=== PATIENT | female | born 1935 | race Caucasian/White ===

== ENCOUNTER 2017-08-19 12:02 | Emergency (ER) | payer MEDICARE ==
[~2017-08-19] VITALS: Ht 142.2 cm; Wt 48.0 kg
[~2017-08-19 12:02] MED LIST: ALBUAER3 INH; AMOX500T PO; OMEP20TA PO; PROC10TA PO; REST30CA PO; SYMB160A INH; TRIA.1%T TOPICAL
[2017-08-19 12:13] VITALS: BP 220/102; PULSE 77; RESP 18; TEMP 97.9; O2SAT 93
[2017-08-19 12:16] VITALS: BP 220/102; PULSE 77; RESP 18; TEMP 97.9; O2SAT 93
[2017-08-19 12:26] VITALS: BP 177/87; PULSE 76; RESP 18; O2SAT 93
--- NOTE | 2017-08-19 12:34 | PD ---
HPI Chief Complaint: Abdominal Pain Time Seen by Provider: 12:20 Travel History International Travel<30 days: No Contact w/Intl Traveler<30days: No Traveled to known affect area: No History of Present Illness HPI This is an 81-year-old female with history of COPD who presents via EMS for evaluation of left lower quadrant abdominal pain. Symptoms started 3 days ago. She describes an intermittent left lower quadrant crampy sensation which is worse in the mornings. Today the pain became worse and this is what prompted evaluation. The pain does not radiate anywhere else. She denies any nausea, vomiting, diarrhea, constipation, fevers, chills, flank pain, dysuria. She has never had this type of pain before. No history of diverticulosis or diverticulitis. She reports a history of cholecystectomy, . She has no other complaints at this time. PFSH Past Medical History Anxiety: No Depression: No COPD: Yes GERD: Yes Insomnia: Yes Psychiatric: No Respiratory: Yes (COPD ) Past Surgical History Section: Yes (3) Cholecystectomy: Yes Social History Alcohol Use: No Tobacco Use: Yes (1/2 PPD) Substance Use: No Allergies-Medications (Allergen,Severity, Reaction): Coded Allergies: pregabalin (Unverified Allergy, Severe, swelling, 08/19/17) codeine (Unverified Allergy, Mild, STOMACH PAIN, 08/19/17) aspirin (Unverified Adverse Reaction, Intermediate, Stomach pain , 08/19/17 ) trazodone (Unverified Adverse Reaction, Intermediate, Not effective. Fatiguing, 08/19/17) Uncoded Allergies: LANACAINE (Allergy, Severe, 01/02/06) UPDATED. tape (Adverse Reaction, Intermediate, Skin reaction, 01/18/16) Reported Meds & Prescriptions Reported Meds & Active Scripts Active Omeprazole 20 Mg Tab 20 Mg PO DAILY Proair Hfa 8.5 GM Inh (Albuterol Sulfate) 90 Mcg/Act Aer 2 Puff INH Q4-6H PRN 108 mcg/actuation Symbicort Inh (Budesonide/Formoterol Fumarate) 160-4.5 Mcg/Act Aero 2 Puff INH Q12HR Review of Systems Except as stated in HPI: all other systems reviewed are Neg Physical Exam Narrative GENERAL: Well-developed well-nourished female in no acute distress SKIN: Warm and dry. HEAD: Atraumatic. Normocephalic. EYES: Pupils equal and round. No scleral icterus. No injection or drainage. ENT: No nasal bleeding or discharge. Mucous membranes pink and moist. NECK: Trachea midline. No JVD. CARDIOVASCULAR: Regular rate and rhythm. No murmur appreciated. RESPIRATORY: No accessory muscle use. Clear to auscultation. Breath sounds equal bilaterally. GASTROINTESTINAL: Abdomen soft, mild focal left lower quadrant tenderness without guarding. No CVA tenderness. MUSCULOSKELETAL: No obvious deformities. No clubbing. No cyanosis. No edema. NEUROLOGICAL: Awake and alert. No obvious cranial nerve deficits. Motor grossly within normal limits. Normal speech. PSYCHIATRIC: Appropriate mood and affect; insight and judgment normal. Data Data Last Documented VS Vital Signs Date Time Temp Pulse Resp B/P (MAP) Pulse Ox O2 Delivery O2 Flow Rate FiO2 08/19/17 14:22 76 18 190/97 (128) 94 Nasal Cannula 2.00 08/19/17 12:16 97.9 Orders Orders Complete Blood Count With Diff (08/19/17 12:29) Comprehensive Metabolic Panel (08/19/17 12:29) Lactic Acid (08/19/17 12:29) Prothrombin Time / Inr (Pt) (08/19/17 12:29) Act Partial Throm Time (Ptt) (08/19/17 12:29) Urinalysis - C+S If Indicated (08/19/17 12:29) Ct Abd/Pel W Iv Contrast(Rout) (08/19/17 12:29) Iv Access Insert/Monitor (08/19/17 12:29) Ecg Monitoring (08/19/17 12:29) Oximetry (08/19/17 12:29) Iohexol 350 Inj (Omnipaque 350 Inj) (08/19/17 15:21) Labs Laboratory Tests Test 08/19/17 12:35 08/19/17 13:26 White Blood Count 8.9 TH/MM3 Red Blood Count 5.04 MIL/MM3 Hemoglobin 15.4 GM/DL Hematocrit 45.0 % Mean Corpuscular Volume 89.3 FL Mean Corpuscular Hemoglobin 30.5 PG Mean Corpuscular Hemoglobin Concent 34.1 % Red Cell Distribution Width 13.5 % Platelet Count 244 TH/MM3 Mean Platelet Volume 8.4 FL Neutrophils (%) (Auto) 67.0 % Lymphocytes (%) (Auto) 18.1 % Monocytes (%) (Auto) 11.4 % Eosinophils (%) (Auto) 3.1 % Basophils (%) (Auto) 0.4 % Neutrophils # (Auto) 6.0 TH/MM3 Lymphocytes # (Auto) 1.6 TH/MM3 Monocytes # (Auto) 1.0 TH/MM3 Eosinophils # (Auto) 0.3 TH/MM3 Basophils # (Auto) 0.0 TH/MM3 CBC Comment DIFF FINAL Differential Comment Prothrombin Time 11.0 SEC Prothromb Time International Ratio 1.0 RATIO Activated Partial Thromboplast Time 29.3 SEC Blood Urea Nitrogen 14 MG/DL Creatinine 0.56 MG/DL Random Glucose 91 MG/DL Total Protein 7.0 GM/DL Albumin 3.6 GM/DL Calcium Level 8.6 MG/DL Alkaline Phosphatase 78 U/L Aspartate Amino Transf (AST/SGOT) 24 U/L Alanine Aminotransferase (ALT/SGPT) 16 U/L Total Bilirubin 0.5 MG/DL Sodium Level 135 MEQ/L Potassium Level 4.1 MEQ/L Chloride Level 103 MEQ/L Carbon Dioxide Level 25.3 MEQ/L Anion Gap 7 MEQ/L Estimat Glomerular Filtration Rate 104 ML/MIN Lactic Acid Level 0.9 mmol/L Urine Color LIGHT-YELLOW Urine Turbidity CLEAR Urine pH 7.0 Urine Specific [place] 1.008 Urine Protein NEG mg/dL Urine Glucose (UA) NEG mg/dL Urine Ketones NEG mg/dL Urine Occult Blood NEG Urine Nitrite NEG Urine Bilirubin NEG Urine Urobilinogen LESS THAN 2.0 MG/DL Urine Leukocyte Esterase NEG Urine RBC 1 /hpf Urine WBC 1 /hpf Microscopic Urinalysis Comment CULT NOT INDICATED MDM Medical Decision Making Medical Screen Exam Complete: Yes Emergency Medical Condition: Yes Medical Record Reviewed: Yes Differential Diagnosis Diverticulitis, colitis, aortic dissection, malignancy, cystitis, constipation, IBS, mesenteric ischemia Narrative Course The patient was placed on ECG monitor and pulse oximetry. Plan is for basic lab work, urinalysis, CT abdomen and pelvis. She is declining pain medication at this time. Blood pressure was initially 220/102 however upon recheck it has spontaneously improved to 177/87. Lab work is unremarkable. CT abdomen and pelvis reveals CONCLUSION: 1. No definite abnormality to explain the patient's left lower quadrant pain identified. 2. Incidental lobulation projecting off the fundus of the uterus measuring 3.5 x 2.9 cm probably representing a uterine fibroid. 3. Degenerative changes in the lumbar spine. The patient's pain resolved during her hospital evaluation. At this point time the plan is to have the patient follow up with her primary care physician. She is stable for discharge. Diagnosis Primary Impression: Abdominal pain Qualified Codes: R10.32 - Left lower quadrant pain Additional Impression: Uterine fibroid Qualified Codes: D25.9 - Leiomyoma of uterus, unspecified Additional Instructions: Follow-up with primary care physician. Return for any emergent medical conditions. Med/Other Pt SpecificInfo: No Change to Meds Disposition: 01 DISCHARGE HOME Condition: Stable Kota Robert Aug 19, 2017 12:34
[2017-08-19 12:41] VITALS: RESP 18; O2SAT 93
[2017-08-19 12:58] LABS: BASOPHIL % 0.4 % (0.0-2.0); EOSINOPHIL # 0.3 TH/MM3 (0-0.4); EOSINOPHIL % 3.1 % (0.0-4.0); HEMO FLAGS DIFF FINAL; LYMPH % 18.1 % (9.0-44.0); LYMPHOCYTE # 1.6 TH/MM3 (1.0-4.8); MEAN CELL VOLUME 89.3 FL (80.0-100.0); MEAN CORPUSCULAR HEMOGLOBIN 30.5 PG (27.0-34.0); MEAN CORPUSCULAR HGB CONC 34.1 % (32.0-36.0); MONO % 11.4 % (0.0-8.0); PLATELET COUNT 244 TH/MM3 (150-450); RED BLOOD COUNT 5.04 MIL/MM3 (4.00-5.30); RED CELL DISTRIBUTION WIDTH 13.5 % (11.6-17.2); WHITE BLOOD COUNT 8.9 TH/MM3 (4.0-11.0)
[2017-08-19 13:10] LABS: APTT (PATIENT) 29.3 SEC (24.3-30.1)
[2017-08-19 13:16] LABS: ALT (GPT) 16 U/L (10-53)
[2017-08-19 13:18] LABS: ALKALINE PHOSPHATASE 78 U/L (45-117); TOTAL BILIRUBIN ADULT 0.5 MG/DL (0.2-1.0)
[2017-08-19 13:57] LABS: ANION GAP 7 MEQ/L (5-15); AST (GOT) 24 U/L (15-37); BICARBONATE 25.3 MEQ/L (21.0-32.0); BLOOD UREA NITROGEN 14 MG/DL (7-18); CHLORIDE 103 MEQ/L (98-107); GLOMERULAR FILTRATION RATE 104 ML/MIN (>89); SODIUM (NA) 135 MEQ/L (136-145)
[2017-08-19 14:00] LABS: POTASSIUM 4.1 MEQ/L (3.5-5.1)
[2017-08-19 14:20] LABS: BLOOD, URINE NEG (NEG); GLUCOSE,URINE NEG (NEG); KETONE, URINE NEG (NEG); NITRITE,URINE NEG (NEG); URINE COLOR LIGHT-YELLOW (YELLW/STRAW)
[2017-08-19 14:22] VITALS: BP 190/97; PULSE 76; RESP 18; O2SAT 94
[2017-08-19 14:35] LABS: COMMENT (UR) CULT NOT INDICATED; CULTURE IF INDICATED CULT NOT INDICATED
[2017-08-19] MEDS ORDERED: IOHEXOL 350 MG/ML 10 ML VIAL (for RAD DIAG) IVCONTRAST ONE (15:21)
--- NOTE | 2017-08-19 15:31 | RADRPT ---
EXAM DATE/TIME: 08/19/2017 15:18 [facility] COMPARISON: No previous studies available for comparison. INDICATIONS : Left lower quadrant pain for 3 days IV CONTRAST: 77 cc Omnipaque 350 (iohexol) IV ORAL CONTRAST: No oral contrast ingested. RADIATION DOSE: 4.69 CTDIvol (mGy) MEDICAL HISTORY : Chronic obstructive pulmonary disease. SURGICAL HISTORY : Cholecystectomy. section. ENCOUNTER: Initial ACUITY: 3 days PAIN SCALE: 5/10 LOCATION: Left lower quadrant TECHNIQUE: Volumetric scanning of the abdomen and pelvis was performed. Using automated exposure control and ad justment of the mA and/or kV according to patient size, radiation dose was kept as low as reasonably achievable to obtain optimal diagnostic quality images. DICOM format image data is available electro nically for review and comparison. FINDINGS: The limited portion of lung bases visualized is clear. The heart is mildly enlarged. Imaging through the liver demonstrates mild prominence of the intrahepatic and extrahepatic biliary s ystem. The distal common duct measures 7 mm. The patient is post cholecystectomy and as such this may simply represent a reservoir effect. The spleen, pancreas, adrenal glands and kidneys are normal in appearance. There is diffuse atherosclerotic plaquing involving the abdominal aorta. The celiac and SMA are paten t. The abdominal aorta appears normal in caliber. There is no retroperitoneal adenopathy. The visualized loops of small and large bowel are unremarkable. There is no free air or free fluid id entified. There is no free fluid within the pelvis. There is no iliac or inguinal adenopathy present. The repro ductive organs are intact. There is a 3.5 x 2.9 cm lobulation projecting off the uterine fundus proba echo representing uterine fibroid. There are moderate degenerative changes throughout the lumbar spine. There is a mild rotatory scolios is. CONCLUSION: 1. No definite abnormality to explain the patient's left lower quadrant pain identified. 2. Incidental lobulation projecting off the fundus of the uterus measuring 3.5 x 2.9 cm probably repr esenting a uterine fibroid. 3. Degenerative changes in the lumbar spine. Agustin Sullivan MD on August 19, 2017 at 15:26 Board Certified Radiologist. This report was verified electronically.
== END 2017-08-19 16:45 | disposition home or self-care (01) ==
LOC: NEPE 12:02
DX: R10.32 Left lower quadrant pain (principal); D25.9 Leiomyoma of uterus, unspecified; J44.9 Chronic obstructive pulmonary disease, unspecified; Z72.0 Tobacco use
CPT/HCPCS: 74177; 80053; 81001; 83605; 85025; 85610; 85730; 99285; Q9967

== ENCOUNTER 2017-11-02 10:18 | Emergency (ER) | payer MEDICARE ==
[~2017-11-02] VITALS: Ht 142.2 cm; Wt 48.0 kg
[~2017-11-02 10:18] MED LIST changes: -AMOX500T PO; +CIPR-9 PO; -OMEP20TA PO; +OMEP20TA93 PO; -PROC10TA PO; -REST30CA PO; -TRIA.1%T TOPICAL
[2017-11-02 10:20] VITALS: BP 190/85; PULSE 118; RESP 18; TEMP 99.8; O2SAT 95
[2017-11-02 10:30] VITALS: O2SAT 94
--- NOTE | 2017-11-02 10:59 | PD ---
HPI Chief Complaint: Respiratory Distress Time Seen by Provider: 10:31 Travel History International Travel<30 days: No Contact w/Intl Traveler<30days: No Traveled to known affect area: No History of Present Illness HPI This is an 81-year-old female with history of COPD, presents here today with complaints of shortness of breath and diarrhea. The patient reports she's had diarrhea since last week. She reports that she went to her primary care physician for the diarrhea and shortness of breath and they started her on Cipro. She states she was on Cipro for and Saturday. She states she did not take it today because it was giving her an upset stomach. She denies any fevers but does state that she feels hot. She denies any chills. There was one episode of vomiting. She reports that she was up all night with diarrhea. There are no other complaints time my examination. PFSH Past Medical History Anxiety: No Depression: No COPD: Yes Diminished Hearing: No GERD: Yes Insomnia: Yes Psychiatric: No Respiratory: Yes Past Surgical History Section: Yes (3) Cholecystectomy: Yes Social History Alcohol Use: No Tobacco Use: Yes (1/2 PPD) Substance Use: No Allergies-Medications (Allergen,Severity, Reaction): Coded Allergies: pregabalin (Verified Allergy, Severe, swelling, 11/02/17) codeine (Verified Allergy, Mild, STOMACH PAIN, 11/02/17) aspirin (Verified Adverse Reaction, Intermediate, Stomach pain , 11/02/17) trazodone (Verified Adverse Reaction, Intermediate, Not effective. Fatiguing, 11/02/17) Uncoded Allergies: LANACAINE (Allergy, Severe, 01/02/06) UPDATED. tape (Adverse Reaction, Intermediate, Skin reaction, 01/18/16) Reported Meds & Prescriptions Reported Meds & Active Scripts Active Reglan (Metoclopramide HCl) 5 Mg Tab 5 Mg PO Q8HR Medrol Dosepak (Methylprednisolone) 4 Mg Dspk 4 Mg PO DIRECTED Per Pharmacist direction Amoxicillin 500 Mg Cap 500 Mg PO TID 10 Days Cipro (Ciprofloxacin HCl) 500 Mg Tab 500 Mg PO BID Proair Hfa 8.5 GM Inh (Albuterol Sulfate) 90 Mcg/Act Aer 2 Puff INH Q4-6H PRN 108 mcg/actuation Symbicort Inh (Budesonide/Formoterol Fumarate) 160-4.5 Mcg/Act Aero 2 Puff INH Q12HR Review of Systems Except as stated in HPI: all other systems reviewed are Neg General / Constitutional: Positive: Fever (subjective warm), No: Chills HENT: No: Headaches, Neck Pain Cardiovascular: No: Chest Pain or Discomfort, Palpitations Respiratory: Positive: Cough (white yellow phlegm), Shortness of Breath, Wheezing Gastrointestinal: Positive: Nausea, Vomiting (Imes one episode), Diarrhea ( several per day), No: Abdominal Pain (other than cramping, no), Hematemesis, Hematochezia Genitourinary: No: Frequency, Dysuria Musculoskeletal: No: Weakness, Pain Neurologic: No: Weakness, Dizziness, Headache Physical Exam Narrative GENERAL: Well developed well-nourished female in mild respiratory discomfort SKIN: Focused skin assessment warm/dry. HEAD: Atraumatic. Normocephalic. EYES: No scleral icterus. No injection or drainage. ENT: No nasal bleeding or discharge. Mucous membranes pink and moist. NECK: Trachea midline. Supple. CARDIOVASCULAR: Tachycardic with a rate of 108. Occasional PVC noted on monitor.. No murmur appreciated. RESPIRATORY: No accessory muscle use. Bilateral expiratory wheezes heard at the upper lung jenkins. Diminished breath sounds at the bilateral bases. No Rales. GASTROINTESTINAL: Abdomen soft, non-tender, nondistended. MUSCULOSKELETAL: No obvious deformities. No clubbing. No cyanosis. Trace pretibial edema bilaterally. NEUROLOGICAL: Awake and alert. No obvious cranial nerve deficits. Motor grossly within normal limits. Normal speech. Data Data Last Documented VS Vital Signs Date Time Temp Pulse Resp B/P (MAP) Pulse Ox O2 Delivery O2 Flow Rate FiO2 11/02/17 11:00 111 20 145/90 (108) 94 Room Air 11/02/17 10:20 99.8 Orders Orders Complete Blood Count With Diff (11/02/17 11:00) Comprehensive Metabolic Panel (11/02/17 11:00) Ckmb (Isoenzyme) Profile (11/02/17 11:00) Troponin I (11/02/17 11:00) Lipase (11/02/17 11:00) Urinalysis - C+S If Indicated (11/02/17 11:00) Enteric Path (Stool) (11/02/17 11:00) C Diff Toxin Pcr (11/02/17 11:00) Chest, Single Ap (11/02/17 11:00) Iv Access Insert/Monitor (11/02/17 11:00) Ecg Monitoring (11/02/17 11:00) Oximetry (11/02/17 11:00) Sodium Chlorid 0.9% 500 Ml Inj (Ns 500 M (11/02/17 11:00) Albuterol-Ipratropium Neb (Duoneb Neb) (11/02/17 11:00) Albuterol Neb (Albuterol Neb) (11/02/17 11:00) CKMB (11/02/17 11:05) CKMB% (11/02/17 11:05) Methylprednisolone So Succ Inj (Solumedr (11/02/17 12:30) Ondansetron Inj (Zofran Inj) (11/02/17 12:45) Labs Laboratory Tests Test 11/02/17 11:05 11/02/17 15:20 White Blood Count 10.2 TH/MM3 Red Blood Count 4.86 MIL/MM3 Hemoglobin 15.2 GM/DL Hematocrit 43.9 % Mean Corpuscular Volume 90.3 FL Mean Corpuscular Hemoglobin 31.2 PG Mean Corpuscular Hemoglobin Concent 34.6 % Red Cell Distribution Width 13.9 % Platelet Count 229 TH/MM3 Mean Platelet Volume 8.6 FL Neutrophils (%) (Auto) 74.7 % Lymphocytes (%) (Auto) 9.7 % Monocytes (%) (Auto) 14.3 % Eosinophils (%) (Auto) 1.0 % Basophils (%) (Auto) 0.3 % Neutrophils # (Auto) 7.6 TH/MM3 Lymphocytes # (Auto) 1.0 TH/MM3 Monocytes # (Auto) 1.5 TH/MM3 Eosinophils # (Auto) 0.1 TH/MM3 Basophils # (Auto) 0.0 TH/MM3 CBC Comment DIFF FINAL Differential Comment Blood Urea Nitrogen 13 MG/DL Creatinine 0.75 MG/DL Random Glucose 78 MG/DL Total Protein 7.6 GM/DL Albumin 3.6 GM/DL Calcium Level 8.4 MG/DL Alkaline Phosphatase 85 U/L Aspartate Amino Transf (AST/SGOT) 46 U/L Alanine Aminotransferase (ALT/SGPT) 26 U/L Total Bilirubin 0.5 MG/DL Sodium Level 137 MEQ/L Potassium Level 4.8 MEQ/L Chloride Level 107 MEQ/L Carbon Dioxide Level 22.6 MEQ/L Anion Gap 7 MEQ/L Estimat Glomerular Filtration Rate 74 ML/MIN Total Creatine Kinase 167 U/L Creatine Kinase MB 4.7 NG/ML Troponin I 0.05 NG/ML Lipase 164 U/L Urine Color YELLOW Urine Turbidity HAZY Urine pH 5.5 Urine Specific [place] 1.020 Urine Protein 30 mg/dL Urine Glucose (UA) NEG mg/dL Urine Ketones 10 mg/dL Urine Occult Blood TRACE Urine Nitrite NEG Urine Bilirubin NEG Urine Urobilinogen LESS THAN 2.0 MG/DL Urine Leukocyte Esterase NEG Urine RBC 3 /hpf Urine WBC 2 /hpf Urine Squamous Epithelial Cells 2 /hpf Urine Hyaline Casts 20 /lpf Urine Mucus FEW /lpf Microscopic Urinalysis Comment CULT NOT INDICATED MDM Medical Decision Making Medical Screen Exam Complete: Yes Emergency Medical Condition: Yes Differential Diagnosis COPD exacerbation versus dehydration versus metabolic derangement versus influenza Narrative Course 81-year-old female history of COPD, presents today with points of cough and congestion and shortness of breath. Patient also reports she's had 7 days of diarrhea. The patient was noted to be mildly dehydrated on exam. She is given a liter and a half of IVD fluid. Her pulse was initially in the low 100s. His come down now to less than 100. She states she feels much improved. She's been given Solu-Medrol 125 mg I V times one dose. She's also been given nebulizer treatments 3. She'll be discharged with a prescription for amoxicillin 5 mg 3 times a day 10 days. She also be given a Medrol Dosepak prescription. She is requesting some nausea medicine. She'll be given a prescription for Reglan. She is instructed to follow up with her primary care physician. Diagnosis Primary Impression: COPD exacerbation Additional Impressions: reported diarrhea Mild dehydration Additional Instructions: Drink plenty of fluids. Follow up with her primary care physician. Return as needed. Med/Other Pt SpecificInfo: Prescription(s) given Scripts Metoclopramide (Reglan) 5 Mg Tab 5 MG PO Q8HR for Nausea, #15 TAB 0 Refills Prov: Charles Mosquera MD 11/02/17 Methylprednisolone Dosepak (Medrol Dosepak) 4 Mg Dspk 4 MG PO DIRECTED, #1 DSPK 0 Refills Per Pharmacist direction Prov: Charles Mosquera MD 11/02/17 Amoxicillin (Amoxicillin) 500 Mg Cap 500 MG PO TID for Infection for 10 Days, CAP 0 Refills Prov: Charles Mosquera MD 11/02/17 Disposition: 01 DISCHARGE HOME Condition: Stable Charles Mosquera MD Nov 02, 2017 10:59
[2017-11-02 11:00] VITALS: BP 145/90; PULSE 111; RESP 20; O2SAT 94
[2017-11-02] MEDS ORDERED: RESP: ALBUTEROL 2.5 MG/IPRATROPIUM 0.5 MG NEB (SCH) INH ONE (11:00)
[2017-11-02] MEDS ORDERED: SODIUM CHLORID 0.9% 500 ML INJ 500 ML IV ONE (11:00)
[2017-11-02] MEDS: RESP: ALBUTEROL 2.5 MG/3 ML NEB (SCH) INH ×2 (11:12→11:13)
[2017-11-02 11:22] LABS: AUTOMATED NEUTROPHIL # 7.6 TH/MM3 (1.8-7.7); BASOPHIL % 0.3 % (0.0-2.0); EOSINOPHIL # 0.1 TH/MM3 (0-0.4); HEMATOCRIT 43.9 % (35.0-46.0); HEMOGLOBIN 15.2 GM/DL (11.6-15.3); LYMPH % 9.7 % (9.0-44.0); MEAN CELL VOLUME 90.3 FL (80.0-100.0); MEAN CORPUSCULAR HEMOGLOBIN 31.2 PG (27.0-34.0); MEAN CORPUSCULAR HGB CONC 34.6 % (32.0-36.0); MEAN PLATELET VOLUME 8.6 FL (7.0-11.0); MONO % 14.3 % (0.0-8.0); MONOCYTE # 1.5 TH/MM3 (0-0.9); NEUT % 74.7 % (16.0-70.0); PLATELET COUNT 229 TH/MM3 (150-450); RED BLOOD COUNT 4.86 MIL/MM3 (4.00-5.30); RED CELL DISTRIBUTION WIDTH 13.9 % (11.6-17.2); WHITE BLOOD COUNT 10.2 TH/MM3 (4.0-11.0)
--- NOTE | 2017-11-02 11:42 | RADRPT ---
EXAM DATE/TIME: 11/02/2017 11:23 [facility] COMPARISON: CHEST SINGLE AP, March 02, 2016, 10:31. INDICATIONS : Shortness of breath. MEDICAL HISTORY : Chronic obstructive pulmonary disease. SURGICAL HISTORY : Cholecystectomy. section. ENCOUNTER: Initial ACUITY: 1 day PAIN SCORE: 0/10 LOCATION: Bilateral chest FINDINGS: Mild interstitial changes in both lungs progressed from 03/02/16 mild cardiomegaly. There is no conso lidation. Degenerative changes about both shoulders. CONCLUSION: Probable mild congestive failure. Skip Sullivan MD FACR on November 02, 2017 at 11:39 Board Certified Radiologist. This report was verified electronically.
[2017-11-02 11:55] LABS: ALBUMIN 3.6 GM/DL (3.4-5.0); ALKALINE PHOSPHATASE 85 U/L (45-117); ALT (GPT) 26 U/L (10-53); AST (GOT) 46 U/L (15-37); BICARBONATE 22.6 MEQ/L (21.0-32.0); BLOOD UREA NITROGEN 13 MG/DL (7-18); CALCIUM 8.4 MG/DL (8.5-10.1); CHLORIDE 107 MEQ/L (98-107); CREATININE 0.75 MG/DL (0.50-1.00); GLOMERULAR FILTRATION RATE 74 ML/MIN (>89); GLUCOSE,RANDOM 78 MG/DL (74-106); LIPASE 164 U/L (73-393); SODIUM (NA) 137 MEQ/L (136-145); TOTAL BILIRUBIN ADULT 0.5 MG/DL (0.2-1.0); TOTAL PROTEIN 7.6 GM/DL (6.4-8.2); TROPONIN I 0.05 NG/ML (0.02-0.05)
[2017-11-02] MEDS ORDERED: methylPREDNISolone SOD SUCC 125 MG/2 ML VIAL IV PUSH ONE (12:30)
[2017-11-02] MEDS ORDERED: ONDANSETRON HCL 4 MG/2 ML VIAL IV PUSH ONE (12:45)
[2017-11-02 15:45] LABS: BILIRUBIN, URINE NEG (NEG); BLOOD, URINE TRACE (NEG); GLUCOSE,URINE NEG (NEG); HYALINE CAST, URINE 20 /lpf (RARE); KETONE, URINE 10 mg/dL (NEG); MUCUS URINE FEW /lpf (OCC); NITRITE,URINE NEG (NEG); PH, URINE 5.5 (5.0-8.5); SQUAMOUS EPITHELIAL CELL URINE 2 /hpf (0-5); URINE COLOR YELLOW (YELLW/STRAW); URINE LEUKOCYTE ESTERASE NEG (NEG)
[2017-11-02] MEDS ORDERED: MEDR4PAK PO (16:44)
[2017-11-02] MEDS ORDERED: AMOX500C PO (16:44)
[2017-11-02] MEDS ORDERED: REGL5TAB PO (16:44)
[2017-11-02 17:19] VITALS: BP 143/78
--- NOTE | 2017-11-04 09:24 | EKG ---
Date Performed: 11/02/2017 Time Performed: 10:44:37 PTAGE: 81 years EKG: SINUS TACHYCARDIA POSSIBLE LEFT ATRIAL ENLARGEMENT LEFT BUNDLE BRANCH BLOCK ABNORMAL ECG PREVIOUS TRACING : 03/02/2016 10.19 Compared to prior tracing no significant change DOCTOR: Dhiraj Hunter Interpretating Date/Time 11/04/2017 09:24:22
== END 2017-11-02 17:21 | disposition home or self-care (01) ==
LOC: NEPE 10:18
DX: J44.1 Chronic obstructive pulmonary disease with (acute) exacerbation (principal); R19.7 Diarrhea, unspecified; R11.10 Vomiting, unspecified; E86.0 Dehydration; R00.0 Tachycardia, unspecified; I44.7 Left bundle-branch block, unspecified; R94.31 Abnormal electrocardiogram [ECG] [EKG]; K21.9 Gastro-esophageal reflux disease without esophagitis; F17.200 Nicotine dependence, unspecified, uncomplicated
CPT/HCPCS: 71010; 80053; 81001; 82550; 82552; 83690; 84484; 85025; 93005; 94640; 94664; 96361; 96374; 96375; 99285; J2405; J2930; J7040; J7613

== ENCOUNTER 2017-11-03 18:28 | Inpatient (IN) | payer MEDICARE ==
[2017-11-03] VITALS (10 sets, daily range): BP systolic 111–208; BP diastolic 55–115; PULSE 103–160; RESP 24–30; TEMP 99–101.2; O2SAT 96–98
[~2017-11-03] VITALS: Ht 144.8 cm; Wt 46.5 kg
[~2017-11-03 18:28] MED LIST changes: +AMOX500C PO; +LEVOFLOXACIN 750 MG PREMIX INJ 150 ML IV SCH; +MEDR4PAK PO; -OMEP20TA93 PO; +REGL5TAB PO
[2017-11-03] MEDS ORDERED: methylPREDNISolone SOD SUCC 125 MG/2 ML VIAL IV PUSH ONE (18:45)
--- NOTE | 2017-11-03 18:51 | PD ---
HPI Chief Complaint: Respiratory Symptoms Time Seen by Provider: 18:42 Travel History International Travel<30 days: No Contact w/Intl Traveler<30days: No Traveled to known affect area: No History of Present Illness HPI 81-year-old female patient with history of COPD, multiple medical issues, presents to the ER today for several days history of worsening respiratory distress, chest discomfort, worse with laying down, sleeps on 2 pillows, worse with exertion. She denies any fevers, vomiting, or any other symptoms. Modifying Factors: None Associated Signs & Symptoms: Worsening shortness of breath, dyspnea on exertion Risk Factors: COPD PFSH Past Medical History Anxiety: No Depression: No COPD: Yes Diminished Hearing: No GERD: Yes Insomnia: Yes Psychiatric: No Respiratory: Yes (COPD) Past Surgical History Section: Yes (3) Cholecystectomy: Yes Social History Alcohol Use: No Tobacco Use: Yes (1/2 PPD) Substance Use: No Allergies-Medications (Allergen,Severity, Reaction): Coded Allergies: pregabalin (Verified Allergy, Severe, swelling, 11/02/17) codeine (Verified Allergy, Mild, STOMACH PAIN, 11/02/17) aspirin (Verified Adverse Reaction, Intermediate, Stomach pain , 11/02/17) trazodone (Verified Adverse Reaction, Intermediate, Not effective. Fatiguing, 11/02/17) Uncoded Allergies: LANACAINE (Allergy, Severe, 01/02/06) UPDATED. tape (Adverse Reaction, Intermediate, Skin reaction, 01/18/16) Reported Meds & Prescriptions Reported Meds & Active Scripts Active Reglan (Metoclopramide HCl) 5 Mg Tab 5 Mg PO Q8HR Medrol Dosepak (Methylprednisolone) 4 Mg Dspk 4 Mg PO DIRECTED Per Pharmacist direction Amoxicillin 500 Mg Cap 500 Mg PO TID 10 Days Cipro (Ciprofloxacin HCl) 500 Mg Tab 500 Mg PO BID Proair Hfa 8.5 GM Inh (Albuterol Sulfate) 90 Mcg/Act Aer 2 Puff INH Q4-6H PRN 108 mcg/actuation Symbicort Inh (Budesonide/Formoterol Fumarate) 160-4.5 Mcg/Act Aero 2 Puff INH Q12HR Review of Systems Except as stated in HPI: all other systems reviewed are Neg Physical Exam Narrative GENERAL: Well-developed elderly white female patient currently in moderate respiratory distress. Awake and oriented 3. B B[place]o in 1 or 2 word sentences at a time. SKIN: Focused skin assessment warm/dry. HEAD: Atraumatic. Normocephalic. EYES: Pupils equal and round. No scleral icterus. No injection or drainage. ENT: No nasal bleeding or discharge. Mucous membranes pink and moist. NECK: Trachea midline. No JVD. Supple. CARDIOVASCULAR: Fast rate and regular rhythm. No murmur appreciated. RESPIRATORY: Moderate accessory muscle use. Wheezing throughout bilaterally. Breath sounds equal bilaterally. GASTROINTESTINAL: Abdomen soft, non-tender, nondistended. Hepatic and splenic margins not palpable. MUSCULOSKELETAL: No obvious deformities. No clubbing. No cyanosis. No edema. NEUROLOGICAL: Awake and alert. No obvious cranial nerve deficits. Motor grossly within normal limits. Normal speech. PSYCHIATRIC: Appropriate mood and affect; insight and judgment normal. Data Data Last Documented VS Vital Signs Date Time Temp Pulse Resp B/P (MAP) Pulse Ox O2 Delivery O2 Flow Rate FiO2 11/03/17 18:47 96 Nasal Cannula 2.00 11/03/17 18:38 154 30 208/115 (146) Orders Orders Complete Blood Count With Diff (11/03/17 18:42) Comprehensive Metabolic Panel (11/03/17 18:42) B-Type Natriuretic Peptide (11/03/17 18:42) Act Partial Throm Time (Ptt) (11/03/17 18:42) Prothrombin Time / Inr (Pt) (11/03/17 18:42) Ckmb (Isoenzyme) Profile (11/03/17 18:42) Troponin I (11/03/17 18:42) Arterial Blood Gas (Abg) (11/03/17 18:42) Influenzae A/B Antigen (11/03/17 18:42) Blood Culture (11/03/17 18:42) Iv Access Insert/Monitor (11/03/17 18:42) Ecg Monitoring (11/03/17 18:42) Oximetry (11/03/17 18:42) Oxygen Administration (11/03/17 18:42) Chest, Single Ap (11/03/17 18:42) Sodium Chloride 0.9% Flush (Ns Flush) (11/03/17 18:45) Methylprednisolone So Succ Inj (Solumedr (11/03/17 18:45) Albuterol-Ipratropium Neb (Duoneb Neb) (11/03/17 18:45) Nitroglycerin-D5w 50 Mg/250 Ml (Nitrogly (11/03/17 19:15) MDM Medical Decision Making Medical Screen Exam Complete: Yes Emergency Medical Condition: Yes Medical Record Reviewed: Yes Differential Diagnosis Shortness of breath, wheezing, chest discomfort: COPD exacerbation versus pneumonia versus CHF exacerbation Narrative Course On exam, she is wheezing quite a bit and in significant distress. Initial respiratory workup was initiated on her and Solu-Medrol and DuoNeb's order for her. Physician Communication Physician Communication Case is signed out to Dr. Pickens is 7 PM awaiting further workup and treatment reevaluation. Patient may need BiPAP as well if symptoms are not improving with the current therapy. Diagnosis Primary Impression: Shortness of breath Admitting Information Admitting Physician Requests: Admit Erinn Canales MD Nov 03, 2017 18:50
[2017-11-03] MEDS: RESP: ALBUTEROL 2.5 MG/IPRATROPIUM 0.5 MG NEB (SCH) INH ×3 (18:58→23:40)
[2017-11-03] MEDS ORDERED: NITROGLYCERIN-D5W 50 MG/250 ML 250 ML ONE (19:15)
[2017-11-03] MEDS ORDERED: ADENOSINE IV SOLN 3 MG/ML 2 ML VIAL ONE ×3 (19:25→19:29)
[2017-11-03] MEDS ORDERED: DILTIAZEM HCL 25 MG/5 ML VIAL ONE (19:33)
--- NOTE | 2017-11-03 19:46 | RADRPT ---
EXAM DATE/TIME: 11/03/2017 19:05 [facility] COMPARISON: CHEST SINGLE AP, November 02, 2017, 11:23. INDICATIONS : Short of breath. MEDICAL HISTORY : Chronic obstructive pulmonary disease. SURGICAL HISTORY : Cholecystectomy. section. ENCOUNTER: [facility] ACUITY: 2 days PAIN SCORE: 0/10 LOCATION: Bilateral chest FINDINGS: Single AP view of the chest. Mild bilateral diffuse interstitial opacity and mild pulmonary vasculatu re prominence. Cardiomediastinal silhouette within normal limits. No evidence of pleural effusion or pneumothorax. CONCLUSION: Minimal bilateral diffuse interstitial opacity suggesting mild pulmonary edema. Conrado Powell MD on November 03, 2017 at 19:42 Board Certified Radiologist. This report was verified electronically.
[2017-11-03] MEDS ORDERED: FUROSEMIDE 40 MG/4 ML VIAL IV PUSH ONE (20:00)
[2017-11-03] MEDS ORDERED: ADENOSINE IV SOLN 3 MG/ML 2 ML VIAL IV PUSH ONE ×2 (20:00)
[2017-11-03] MEDS ORDERED: NITROGLYCERIN-D5W 50 MG/250 ML 250 ML IV ONE (20:00)
[2017-11-03] MEDS ORDERED: DILTIAZEM HCL 25 MG/5 ML VIAL IV ONE (20:00)
[2017-11-03] MEDS: SODIUM CHLORIDE 0.9% FLUSH 10 ML FLUSH IVF PRN (20:20)
[2017-11-03 20:25] LABS: AUTOMATED NEUTROPHIL # 13.3 TH/MM3 (1.8-7.7); BASOPHIL % 0.1 % (0.0-2.0); HEMATOCRIT 44.2 % (35.0-46.0); HEMOGLOBIN 14.4 GM/DL (11.6-15.3); LYMPH % 9.7 % (9.0-44.0); LYMPHOCYTE # 1.6 TH/MM3 (1.0-4.8); MEAN CELL VOLUME 91.9 FL (80.0-100.0); MEAN CORPUSCULAR HGB CONC 32.7 % (32.0-36.0); MEAN PLATELET VOLUME 8.2 FL (7.0-11.0); MONOCYTE # 1.5 TH/MM3 (0-0.9); NEUT % 81.2 % (16.0-70.0); PLATELET COUNT 240 TH/MM3 (150-450); RED BLOOD COUNT 4.81 MIL/MM3 (4.00-5.30); RED CELL DISTRIBUTION WIDTH 14.1 % (11.6-17.2); WHITE BLOOD COUNT 16.4 TH/MM3 (4.0-11.0)
[2017-11-03 20:33] LABS: PROTHROMBIN TIME - PATIENT 10.1 SEC (9.8-11.6)
[2017-11-03 20:40] LABS: BILIRUBIN, URINE NEG (NEG); BLOOD, URINE MOD (NEG); GLUCOSE,URINE TRACE mg/dL (NEG); HYALINE CAST, URINE 3 /lpf (RARE); KETONE, URINE NEG (NEG); MUCUS URINE FEW /lpf (OCC); NITRITE,URINE NEG (NEG); SQUAMOUS EPITHELIAL CELL URINE <1 /hpf (0-5); URINE COLOR LIGHT-YELLOW (YELLW/STRAW); URINE LEUKOCYTE ESTERASE NEG (NEG)
[2017-11-03 20:53] LABS: ALBUMIN 3.7 GM/DL (3.4-5.0); ALKALINE PHOSPHATASE 92 U/L (45-117); ALT (GPT) 66 U/L (10-53); AST (GOT) 88 U/L (15-37); BICARBONATE 25.5 MEQ/L (21.0-32.0); BLOOD UREA NITROGEN 20 MG/DL (7-18); CHLORIDE 105 MEQ/L (98-107); CREATININE 0.99 MG/DL (0.50-1.00); GLOMERULAR FILTRATION RATE 54 ML/MIN (>89); GLUCOSE,RANDOM 214 MG/DL (74-106); SODIUM (NA) 136 MEQ/L (136-145); TOTAL BILIRUBIN ADULT 0.1 MG/DL (0.2-1.0); TOTAL PROTEIN 7.8 GM/DL (6.4-8.2); TROPONIN I 0.28 NG/ML (0.02-0.05)
[2017-11-03] MEDS ORDERED: ASPIRIN 81 MG CHEW TAB CHEW ONE (21:15)
[2017-11-03] MEDS ORDERED: HEPARIN SODIUM - IV 10,000 UNITS/10 ML VIAL IV ONE (21:15)
[2017-11-03] MEDS ORDERED: CHLORHEXIDINE GLUCONATE 2 % 1 PACK (2 CLOTHS) TOP PRN (21:30)
[2017-11-03] MEDS ORDERED: METOPROLOL TARTRATE 5 MG/5 ML VIAL IV PUSH ONE (21:30)
[2017-11-03] MEDS ORDERED: POTASSIUM CHLOR 40 MEQ PREMIX 100 ML IV PRN ×2 (21:30)
[2017-11-03] MEDS ORDERED: POTASSIUM CHLORIDE 25 MEQ EFFERVESCENT TAB PO PRN (21:30)
[2017-11-03] MEDS ORDERED: METOPROLOL TARTRATE 5 MG/5 ML VIAL IV PUSH PRN (21:30)
[2017-11-03] MEDS ORDERED: ACETAMINOPHEN 325 MG TAB PO PRN (21:30)
[2017-11-03] MEDS ORDERED: LEVOFLOXACIN 750 MG PREMIX INJ 150 ML IV SCH (21:30)
[2017-11-03] MEDS ORDERED: POTASSIUM PHOSPHATE MONOBASIC 500 MG TAB PO/TUBE PRN (21:30)
[2017-11-03] MEDS ORDERED: ONDANSETRON HCL 4 MG/2 ML VIAL IV PUSH PRN (21:30)
[2017-11-03] MEDS ORDERED: MAGNESIUM SULFATE INJ 4 GM in SODIUM CHLORIDE 0.9% INJ 92 ML IV PRN (21:30)
[2017-11-03] MEDS ORDERED: DEXTROSE 50% IN WATER 50 ML VIAL(D50) IV PUSH PRN (21:30)
[2017-11-03] MEDS ORDERED: MAGNESIUM OXIDE 400 MG TAB PO PRN (21:30)
[2017-11-03] MEDS ORDERED: MORPHINE SULFATE 2 MG/ML INJ IM PRN (21:30)
[2017-11-03] MEDS ORDERED: RESP: ALBUTEROL 2.5 MG/IPRATROPIUM 0.5 MG NEB (PRN) INH (21:30)
[2017-11-03] MEDS ORDERED: POTASSIUM PHOSPHATE INJ 30 MMOL in SODIUM CHLOR 0.9% 250 ML INJ 250 ML IV PRN (21:30)
[2017-11-03] MEDS ORDERED: POTASSIUM CHLOR 20 MEQ PREMIX 100 ML IV PRN ×2 (21:30)
[2017-11-03] MEDS ORDERED: POTASSIUM PHOSPHATE MONOBASIC 500 MG TAB PO PRN (21:30)
[2017-11-03] MEDS ORDERED: SODIUM PHOSPHATE INJ 30 MMOL in SODIUM CHLOR 0.9% 250 ML INJ 240 ML IV PRN (21:30)
[2017-11-03] MEDS ORDERED: MAGNESIUM SULFATE INJ 2 GM in SODIUM CHLORIDE 0.9% INJ 96 ML IV PRN (21:30)
[2017-11-03] MEDS ORDERED: MAGNESIUM HYDROXIDE SUSP 30 ML CUP PO PRN (21:30)
[2017-11-03] MEDS ORDERED: MISCELLANEOUS NURSING INFORMATION XX SCH (21:30)
--- NOTE | 2017-11-03 21:41 | HHI.HP ---
[facility] Service Critical Care Medicine Primary Care Physician RADHA Brothers Admission Diagnosis hypertensive emergeny, congestive heart failure Diagnosis: Chief Complaint: shortness of breath Travel History International Travel<30 Days: No Contact w/Intl Traveler <30 Da: No Traveled to Known Affected Are: No History of Present Illness This is an 81-year-old female with a history of COPD who presented yesterday the emergency department with the chief complaint of worsening shortness of breath over the last few days. She denies fever, chills. She endorses chronic sputum production but no change in the quality or consistency or amount of sputum production. Yesterday she denied any chest pain or dyspnea on exertion, however today she endorses a chest tightness that she describes as "a tightness underneath her breasts ". She states that this chest tightness last 5 or 10 minutes and then was away on its own. No exacerbating or alleviating factors. In the emergency department yesterday she was given a steroid Dosepak and sent home with frequent nebs. She represents tachycardic and hypertensive in the emergency department. Her troponins were 0.05 yesterday and they've risen to 0.28 today with an associated rise in creatinine kinase. She denies having any history of coronary artery disease. She denies nausea, vomiting, abdominal pain. She denies any radiating of this chest pain. In the emergency department she was labored in her breathing and hypoxic and was placed initially on nonrebreather and then BiPAP. Chest x-ray shows early pulmonary vascular congestion and possible pulmonary edema. The emergency room she was given 40 mg of IV Lasix with good diuresis and was weaned down to nasal cannula oxygen. When I evaluated the patient she was no longer labored but can speak in complete sentences. EKG both yesterday and today demonstrate a widened QRS what appears to be in incomplete left bundle-branch block. No overt evidence of STEMI criteria. Other laboratory evidence is positive for leukocytosis to 16.4 with an 81% neutrophil predominance, slightly elevated AST/LT, BNP of 399, and lactate of 3.5. Review of Systems Constitutional: DENIES: Diaphoretic episodes, Fatigue, Fever, Weight gain, Chills Respiratory: COMPLAINS OF: Shortness of breath, DENIES: Apneas, Cough, Snoring , Wheezing, Hemoptysis, Sputum production Cardiovascular: COMPLAINS OF: Chest pain, DENIES: Palpitations, Syncope, Dyspnea on Exertion, PND, Lower Extremity Edema, Orthopnea Gastrointestinal: DENIES: Abdominal pain, Black stools, Bloody stools, Constipation, Diarrhea, Nausea, Vomiting Neurologic: DENIES: Headache Psychiatric: DENIES: Confusion Past Family Social History Allergies: Coded Allergies: pregabalin (Verified Allergy, Severe, swelling, 11/02/17) codeine (Verified Allergy, Mild, STOMACH PAIN, 11/02/17) aspirin (Verified Adverse Reaction, Intermediate, Stomach pain , 11/02/17) trazodone (Verified Adverse Reaction, Intermediate, Not effective. Fatiguing, 11/02/17) Uncoded Allergies: LANACAINE (Allergy, Severe, 01/02/06) UPDATED. tape (Adverse Reaction, Intermediate, Skin reaction, 01/18/16) Past Medical History COPD GERD Insomnia Past Surgical History delivery 3 Cholecystectomy Reported Medications Reglan (Metoclopramide HCl) 5 Mg Tab 5 Mg PO Q8HR Medrol Dosepak (Methylprednisolone) 4 Mg Dspk 4 Mg PO DIRECTED Per Pharmacist direction Amoxicillin 500 Mg Cap 500 Mg PO TID 10 Days Cipro (Ciprofloxacin HCl) 500 Mg Tab 500 Mg PO BID Proair Hfa 8.5 GM Inh (Albuterol Sulfate) 90 Mcg/Act Aer 2 Puff INH Q4-6H PRN 108 mcg/actuation Symbicort Inh (Budesonide/Formoterol Fumarate) 160-4.5 Mcg/Act Aero 2 Puff INH Q12HR Active Ordered Medications See MAR Family History Reviewed and found to be noncontributory to her acute illness Social History Half pack per day smoker. Denies alcohol. Denies other drugs. Physical Exam Vital Signs Vital Signs Date Time Temp Pulse Resp B/P (MAP) Pulse Ox O2 Delivery O2 Flow Rate FiO2 11/03/17 20:30 99.0 103 24 123/60 (81) 97 BiPAP 15.00 11/03/17 20:19 59 123/60 11/03/17 20:15 110 24 111/59 (76) 97 BiPAP 15.00 11/03/17 20:00 128 24 111/57 (75) 97 BiPAP 15.00 11/03/17 19:45 126 24 143/70 (94) 97 BiPAP 15.00 11/03/17 19:30 160 24 174/103 (126) 97 BiPAP 15.00 11/03/17 19:20 97 40 11/03/17 18:47 96 Nasal Cannula 2.00 11/03/17 18:47 96 Nasal Cannula 2.00 11/03/17 18:38 154 30 208/115 (146) Physical Exam GENERAL: Elderly female who appears older than stated age, lying in bed, mild distress due to dyspnea HEENT: Normocephalic. Atraumatic. Pupils equal, round, reactive, conjugate. Mucous membranes are moist NECK: Trachea is midline. There is no JVD. CHEST: Mildly tachypneic. Not using accessory muscles. Nasal cannula oxygen. CARDIOVASCULAR: Tachycardic rate, regular rhythm. Sinus by telemetry. ABDOMEN: Soft, nontender, nondistended. No guarding. MUSCULOSKELETAL: Pulses 2+. No peripheral edema. NEUROLOGICAL: RASS 0. Follows commands. No focal deficits. Laboratory Laboratory Tests Test 11/03/17 19:30 11/03/17 20:00 11/03/17 20:34 White Blood Count 16.4 Red Blood Count 4.81 Hemoglobin 14.4 Hematocrit 44.2 Mean Corpuscular Volume 91.9 Mean Corpuscular Hemoglobin 30.0 Mean Corpuscular Hemoglobin Concent 32.7 Red Cell Distribution Width 14.1 Platelet Count 240 Mean Platelet Volume 8.2 Neutrophils (%) (Auto) 81.2 Lymphocytes (%) (Auto) 9.7 Monocytes (%) (Auto) 9.0 Eosinophils (%) (Auto) 0.0 Basophils (%) (Auto) 0.1 Neutrophils # (Auto) 13.3 Lymphocytes # (Auto) 1.6 Monocytes # (Auto) 1.5 Eosinophils # (Auto) 0.0 Basophils # (Auto) 0.0 CBC Comment DIFF FINAL Differential Comment Prothrombin Time 10.1 Prothromb Time International Ratio 1.0 Activated Partial Thromboplast Time 21.2 Blood Urea Nitrogen 20 Creatinine 0.99 Random Glucose 214 Total Protein 7.8 Albumin 3.7 Calcium Level 8.0 Alkaline Phosphatase 92 Aspartate Amino Transf (AST/SGOT) 88 Alanine Aminotransferase (ALT/SGPT) 66 Total Bilirubin 0.1 Sodium Level 136 Potassium Level 4.1 Chloride Level 105 Carbon Dioxide Level 25.5 Anion Gap 6 Estimat Glomerular Filtration Rate 54 Total Creatine Kinase 634 Creatine Kinase MB 16.2 Creatine Kinase MB % 2.6 Troponin I 0.28 B-Type Natriuretic Peptide 399 Blood Gas Puncture Site RT RADIAL Blood Gas Patient Temperature 98.6 Blood Gas HCO3 19 Blood Gas Base Excess -5.7 Blood Gas Oxygen Saturation 97 Arterial Blood pH 7.33 Arterial Blood Partial Pressure CO2 38 Arterial Blood Partial Pressure O2 123 Arterial Blood Oxygen Content 18.3 Arterial Blood Carboxyhemoglobin 0.9 Arterial Blood Methemoglobin 0.5 Blood Gas Hemoglobin 13.3 Oxygen Delivery Device BiPAP Blood Gas Ventilator Setting IPAP 16/EPAP 8 Blood Gas Inspired Oxygen 40 Date/Time Source Procedure Growth Status 11/03/17 19:45 Blood Peripheral Aerobic Blood Culture Pending Received 11/03/17 19:45 Blood Peripheral Anaerobic Blood Culture Pending Received 11/03/17 19:50 Nasal Washing Influenza Types A,B Antigen (HERMINIA) - Final NEGATIVE FOR FLU A AND B ANTIGEN.... Complete Result Diagram: 11/03/17192911/03/17 193 Imaging Last Impressions Chest X-Ray 11/03/17 184 Signed Impressions: Service Date/Time: Friday, November 03, 2017 19:05 - CONCLUSION: Minimal bilateral diffuse interstitial opacity suggesting mild pulmonary edema. Conrado Powell MD Septic Shock Reassessment Septic shock perfusion: reassessment completed Caprini VTE Risk Assessment Caprini VTE Risk Assessment: Mod/High Risk (score >= 2) Caprini Risk Assessment Model Point Value = 1 Point Value = 2 Point Value = 3 Point Value = 5 Age 41-60 Minor surgery BMI > 25 kg/m2 Swollen legs Varicose veins or History of unexplained or recurrent spontaneous Oral contraceptives or hormone replacement Sepsis (< 1 month) Serious lung disease, including pneumonia (< 1 month) Abnormal pulmonary function Acute myocardial infarction Congestive heart failure (< 1 month) History of inflammatory bowel disease Medical patient at bed rest Age 61-74 Arthroscopic surgery Major open surgery (> 45 min) Laparoscopic surgery (> 45 min) Malignancy Confined to bed (> 72 hours) Immobilizing plaster cast Central venous access Age >= 75 History of VTE Family history of VTE Factor V Leiden Prothrombin [id number] Lupus anticoagulant Anticardiolipin antibodies Elevated serum homocysteine Heparin-induced thrombocytopenia Other congenital or acquired thrombophilia Stroke (< 1 month) Elective arthroplasty Hip, pelvis, or leg fracture Acute spinal cord injury (< 1 month) Prophylaxis Regimen Total Risk Factor Score Risk Level Prophylaxis Regimen 0-1 Low Early ambulation 2 Moderate Order ONE of the following: *Sequential Compression Device (SCD) *Heparin 5000 units SQ BID 3-4 Higher Order ONE of the following medications: *Heparin 5000 units SQ TID *Enoxaparin/Lovenox 40 mg SQ daily (WT < 150 kg, CrCl > 30 mL/min) *Enoxaparin/Lovenox 30 mg SQ daily (WT < 150 kg, CrCl > 10-29 mL/min) *Enoxaparin/Lovenox 30 mg SQ BID (WT < 150 kg, CrCl > 30 mL/min) AND/OR *Sequential Compression Device (SCD) 5 or more Highest Order ONE of the following medications: *Heparin 5000 units SQ TID (Preferred with Epidurals) *Enoxaparin/Lovenox 40 mg SQ daily (WT < 150 kg, CrCl > 30 mL/min) *Enoxaparin/Lovenox 30 mg SQ daily (WT < 150 kg, CrCl > 10-29 mL/min) *Enoxaparin/Lovenox 30 mg SQ BID (WT < 150 kg, CrCl > 30 mL/min) AND *Sequential Compression Device (SCD) Assessment and Plan Assessment and Plan Assessment: 81-year-old female with history of COPD who presented with shortness of breath and was initially thought to have COPD exacerbation. Unclear etiology of her elevated troponins. This certainly could be type II NSTEMI secondary to demand ischemia from a COPD exacerbation with super-imposed tachycardia from frequent neb use. However, the substernal chest pain is a new symptom for her and is unusual and less likely to be associated only with demand ischemia. will treat her as ACS until she can be more thoroughly worked- up. Given her neutrophil predominance and her severity of symptoms, will cover her with antibiotics for presumed COPD exacerbation and continue steroids and nebs. Admit to ICU for close monitoring: highly complex and high risk of decompensation. Lactic acidosis most likely from poor oxygen delivery from either hypoxia or poor cardiac output from demand ischemia. Unlikely to be sepsis related as she has no overt signs of sepsis. Elevated Troponins Possible Acute coronary syndrome Chest pain - heparin drip - ASA - metoprolol 5mg iv x 1 and prn to keep goal HR < 100 - ngt drip to keep SBP < 160 and for any chest pain - morphine 2mg iv q3h prn for pain - trend troponins - consult cardiology COPD Exacerbation- severe - continue prn bipap - wean fio2 for goal spo2 > 90% - nebs: aggressively control tachycardia given potential for ACS, but cannot withold nebs in the setting of concomitant COPD exacerbation - steroids - Levaquin - f/u cultures CBC, BMP daily SCDs, heparin drip, pepcid. NPO for now and observe clinical course. Admit to ICU for close monitoring. if her trops are downtrending and she clinically stabilizes, can transfer out of ICU. Code Status Full Code Reginaldo Brooks MD Nov 03, 2017 21:41
[2017-11-03] MEDS: HEPARIN-D5W 25,000 U/250 ML 250 ML IV PRN (21:45)
[2017-11-03] MEDS: INSULIN NovoLIN REGULAR SUPPLEMENTAL SCALE SQ SCH (23:31)
[2017-11-03] MEDS: CHLORHEXIDINE GLUCONATE 2 % 1 PACK (2 CLOTHS) TOP SCH (23:31)
[2017-11-04] VITALS (15 sets, daily range): BP systolic 115–197; BP diastolic 56–88; PULSE 78–107; RESP 19–31; TEMP 99.1–100; O2SAT 94–99
--- NOTE | 2017-11-04 01:08 | PD ---
Data Data Last Documented VS Vital Signs Date Time Temp Pulse Resp B/P (MAP) Pulse Ox O2 Delivery O2 Flow Rate FiO2 11/03/17 20:30 99.0 103 24 123/60 (81) 97 BiPAP 15.00 11/03/17 19:20 40 Orders Orders Complete Blood Count With Diff (11/03/17 18:42) Comprehensive Metabolic Panel (11/03/17 18:42) B-Type Natriuretic Peptide (11/03/17 18:42) Act Partial Throm Time (Ptt) (11/03/17 18:42) Prothrombin Time / Inr (Pt) (11/03/17 18:42) Ckmb (Isoenzyme) Profile (11/03/17 18:42) Troponin I (11/03/17 18:42) Arterial Blood Gas (Abg) (11/03/17 18:42) Influenzae A/B Antigen (11/03/17 18:42) Blood Culture (11/03/17 18:42) Iv Access Insert/Monitor (11/03/17 18:42) Ecg Monitoring (11/03/17 18:42) Oximetry (11/03/17 18:42) Oxygen Administration (11/03/17 18:42) Chest, Single Ap (11/03/17 18:42) Sodium Chloride 0.9% Flush (Ns Flush) (11/03/17 18:45) Methylprednisolone So Succ Inj (Solumedr (11/03/17 18:45) Albuterol-Ipratropium Neb (Duoneb Neb) (11/03/17 18:45) Nitroglycerin-D5w 50 Mg/250 Ml (Nitrogly (11/03/17 19:15) Adenosine Inj (Adenocard Inj) (11/03/17 19:25) Adenosine Inj (Adenocard Inj) (11/03/17 19:28) Adenosine Inj (Adenocard Inj) (11/03/17 19:29) Diltiazem Inj (Cardizem Inj) (11/03/17 19:33) Furosemide Inj (Lasix Inj) (11/03/17 20:00) Urinalysis - C+S If Indicated (11/03/17 19:50) Nitroglycerin-D5w 50 Mg/250 Ml (Nitrogly (11/03/17 20:00) Diltiazem Inj (Cardizem Inj) (11/03/17 20:00) Resp Bipap / Cpap Non Invas Vt (11/03/17 ) Adenosine Inj (Adenocard Inj) (11/03/17 20:00) Adenosine Inj (Adenocard Inj) (11/03/17 20:00) CKMB (11/03/17 19:30) CKMB% (11/03/17 19:30) Aspirin Chew (Aspirin Chew) (11/03/17 21:15) Heparin Inj (Heparin Inj) (11/03/17 21:15) Heparin-D5w 25,000 U/250 Ml (Heparin-D5w (11/03/17 21:15) Cbc No Diff, Includes Plts (11/06/17 06:00) Act Partial Throm Time (Ptt) (11/04/17 04:05) Occult Blood (Hemoccult) Stool (11/03/17 21:05) Admit Order (Ed Use Only) (11/03/17 21:13) Labs Laboratory Tests Test 11/03/17 19:30 11/03/17 20:00 11/03/17 20:34 White Blood Count 16.4 TH/MM3 Red Blood Count 4.81 MIL/MM3 Hemoglobin 14.4 GM/DL Hematocrit 44.2 % Mean Corpuscular Volume 91.9 FL Mean Corpuscular Hemoglobin 30.0 PG Mean Corpuscular Hemoglobin Concent 32.7 % Red Cell Distribution Width 14.1 % Platelet Count 240 TH/MM3 Mean Platelet Volume 8.2 FL Neutrophils (%) (Auto) 81.2 % Lymphocytes (%) (Auto) 9.7 % Monocytes (%) (Auto) 9.0 % Eosinophils (%) (Auto) 0.0 % Basophils (%) (Auto) 0.1 % Neutrophils # (Auto) 13.3 TH/MM3 Lymphocytes # (Auto) 1.6 TH/MM3 Monocytes # (Auto) 1.5 TH/MM3 Eosinophils # (Auto) 0.0 TH/MM3 Basophils # (Auto) 0.0 TH/MM3 CBC Comment DIFF FINAL Differential Comment Prothrombin Time 10.1 SEC Prothromb Time International Ratio 1.0 RATIO Activated Partial Thromboplast Time 21.2 SEC Blood Urea Nitrogen 20 MG/DL Creatinine 0.99 MG/DL Random Glucose 214 MG/DL Total Protein 7.8 GM/DL Albumin 3.7 GM/DL Calcium Level 8.0 MG/DL Alkaline Phosphatase 92 U/L Aspartate Amino Transf (AST/SGOT) 88 U/L Alanine Aminotransferase (ALT/SGPT) 66 U/L Total Bilirubin 0.1 MG/DL Sodium Level 136 MEQ/L Potassium Level 4.1 MEQ/L Chloride Level 105 MEQ/L Carbon Dioxide Level 25.5 MEQ/L Anion Gap 6 MEQ/L Estimat Glomerular Filtration Rate 54 ML/MIN Total Creatine Kinase 634 U/L Creatine Kinase MB 16.2 NG/ML Creatine Kinase MB % 2.6 % Troponin I 0.28 NG/ML B-Type Natriuretic Peptide 399 PG/ML Urine Color LIGHT-YELLOW Urine Turbidity CLEAR Urine pH 5.0 Urine Specific [place] 1.014 Urine Protein 100 mg/dL Urine Glucose (UA) TRACE mg/dL Urine Ketones NEG mg/dL Urine Occult Blood MOD Urine Nitrite NEG Urine Bilirubin NEG Urine Urobilinogen LESS THAN 2.0 MG/DL Urine Leukocyte Esterase NEG Urine RBC LESS THAN 1 /hpf Urine WBC 1 /hpf Urine Squamous Epithelial Cells <1 /hpf Urine Hyaline Casts 3 /lpf Urine Mucus FEW /lpf Microscopic Urinalysis Comment CULT NOT INDICATED Blood Gas Puncture Site RT RADIAL Blood Gas Patient Temperature 98.6 Blood Gas HCO3 19 mmol/L Blood Gas Base Excess -5.7 mmol/L Blood Gas Oxygen Saturation 97 % Arterial Blood pH 7.33 Arterial Blood Partial Pressure CO2 38 mmHg Arterial Blood Partial Pressure O2 123 mmHG Arterial Blood Oxygen Content 18.3 Vol % Arterial Blood Carboxyhemoglobin 0.9 % Arterial Blood Methemoglobin 0.5 % Blood Gas Hemoglobin 13.3 G/DL Oxygen Delivery Device BiPAP Blood Gas Ventilator Setting IPAP 16/EPAP 8 Blood Gas Inspired Oxygen 40 % [facility] Supervised Visit with KALANI: Yes Narrative Course I took over care of this patient from Dr. Kruger. Patient has a history of COPD. She was seen yesterday in the emergency department and was discharged on steroids. She says today she's gotten increasingly short of breath and dyspneic. On arrival when I saw her she was in acute respiratory distress in extremis. She was hypertensive and tachycardic and diaphoretic using accessory muscles and not able to speak. She was placed on BiPAP, nitroglycerin was initiated for presumed congestive heart failure. Her heart rate was sustained in the 150s. I suspect this was a supraventricular tachycardia, possibly potentiated by bronchodilators. She has a known left bundle-branch block on EKG. She was given adenosine which demonstrated an underlying wide sinus rhythm. She was given 15 mg of diltiazem and her heart rate improved significantly. Patient's respiratory distress improved. Ultimately she was able to be titrated off of BiPAP. Labs and chest x-ray confirm congestive heart failure. Troponin is elevated but patient denies any chest discomfort to me. I don't think this is an acute myocardial infarction but certainly could reflect ACS that's been going on over the past several days. Patient will be admitted to the intensive care unit and she was anticoagulated with heparin. Physician Communication Physician Communication Discussed with Dr. Chen Diagnosis Primary Impression: Shortness of breath Admitting Information Admitting Physician Requests: Admit Tracey Pickens MD Nov 04, 2017 01:08
[2017-11-04 01:58] LABS: HEMATOCRIT 39.1 % (35.0-46.0); HEMOGLOBIN 13.1 GM/DL (11.6-15.3); MEAN CELL VOLUME 90.3 FL (80.0-100.0); MEAN CORPUSCULAR HEMOGLOBIN 30.4 PG (27.0-34.0); MEAN CORPUSCULAR HGB CONC 33.6 % (32.0-36.0); MEAN PLATELET VOLUME 8.4 FL (7.0-11.0); PLATELET COUNT 208 TH/MM3 (150-450); RED BLOOD COUNT 4.33 MIL/MM3 (4.00-5.30); RED CELL DISTRIBUTION WIDTH 13.9 % (11.6-17.2); WHITE BLOOD COUNT 14.2 TH/MM3 (4.0-11.0)
[2017-11-04 02:20] LABS: BICARBONATE 23.9 MEQ/L (21.0-32.0); CALCIUM 7.8 MG/DL (8.5-10.1); CREATININE 0.93 MG/DL (0.50-1.00)
[2017-11-04 02:28] LABS: TROPONIN I 1.19 NG/ML (0.02-0.05)
[2017-11-04] MEDS: RESP: ALBUTEROL 2.5 MG/IPRATROPIUM 0.5 MG NEB (SCH) INH ×5 (03:40→20:00)
[2017-11-04] MEDS: INSULIN NovoLIN REGULAR SUPPLEMENTAL SCALE SQ SCH ×5 (06:00→20:12)
--- NOTE | 2017-11-04 06:44 | HHI.CCPN ---
Subjective Remarks/Hospital Course This is an 81-year-old female with a history of COPD who presented yesterday the emergency department with the chief complaint of worsening shortness of breath over the last few days. She denies fever, chills. She endorses chronic sputum production but no change in the quality or consistency or amount of sputum production. Yesterday she denied any chest pain or dyspnea on exertion, however today she endorses a chest tightness that she describes as "a tightness underneath her breasts ". She states that this chest tightness last 5 or 10 minutes and then was away on its own. No exacerbating or alleviating factors. In the emergency department yesterday she was given a steroid Dosepak and sent home with frequent nebs. She represents tachycardic and hypertensive in the emergency department. Her troponins were 0.05 yesterday and they've risen to 0.28 today with an associated rise in creatinine kinase. She denies having any history of coronary artery disease. She denies nausea, vomiting, abdominal pain. She denies any radiating of this chest pain. In the emergency department she was labored in her breathing and hypoxic and was placed initially on nonrebreather and then BiPAP. Chest x-ray shows early pulmonary vascular congestion and possible pulmonary edema. The emergency room she was given 40 mg of IV Lasix with good diuresis and was weaned down to nasal cannula oxygen. When I evaluated the patient she was no longer labored but can speak in complete sentences. EKG both yesterday and today demonstrate a widened QRS what appears to be in incomplete left bundle-branch block. No overt evidence of STEMI criteria. Other laboratory evidence is positive for leukocytosis to 16.4 with an 81% neutrophil predominance, slightly elevated AST/LT, BNP of 399, and lactate of 3.5. Subjective 11/04: MAXIMUM TEMPERATURE 100. Currently 99.4. Denies chest pain currently. Likely remains elevated but downtrending at 3.0. Troponin bump to 1.19. A.m. EKG pending. Echocardiogram ordered. Heparin drip and received asked him. Low-dose beta armando ordered. Objective Vital Signs Date Time Temp Pulse Resp B/P (MAP) Pulse Ox O2 Delivery O2 Flow Rate FiO2 11/04/17 06:00 101 11/04/17 06:00 99.4 25 130/63 (85) 95 11/04/17 04:15 Nasal Cannula 2.00 11/03/17 19:20 40 Intake and Output 11/04/17 11/04/17 11/05/17 08:00 16:00 00:00 Intake Total 265.5 ml Output Total 800 ml Balance -534.5 ml Result Diagram: 11/04/17 0146 11/04/17 0146 Other Results Microbiology Date/Time Source Procedure Growth Status 11/03/17 19:45 Blood Peripheral Aerobic Blood Culture Pending Received 11/03/17 19:45 Blood Peripheral Anaerobic Blood Culture Pending Received 11/03/17 19:50 Nasal Washing Influenza Types A,B Antigen (HERMINIA) - Final NEGATIVE FOR FLU A AND B ANTIGEN.... Complete Imaging Last Impressions Chest X-Ray 11/03/172 Signed Impressions: Service Date/Time: Friday, November 03, 2017 19:05 - CONCLUSION: Minimal bilateral diffuse interstitial opacity suggesting mild pulmonary edema. Conrado Powell MD Objective Remarks GENERAL: 79-year-old female resting in bed in no acute distress HEENT: Normocephalic. Atraumatic. Pupils equal, round, reactive, conjugate. Mucous membranes are moist and pink. Oropharynx without erythema or exudates NECK: Trachea is midline. There is no JVD. CHEST: Diminished breath sounds throughout. Currently without any wheezing CARDIOVASCULAR: RRR. S1, S2 no S4. Do not appreciate murmur. ABDOMEN: Soft, nontender, nondistended. Hypoactive bowel sounds MUSCULOSKELETAL: Pulses 2+. No peripheral edema. NEUROLOGICAL: RASS 0. Follows commands. No focal deficits. A/P Assessment and Plan Neuro/Psych: Acetaminophen 650 mg by mouth every 6 hours fever/pain 1-10 Morphine sulfate 2 mg IV every 3 hours. Pain 8 through 10 CV: Elevated troponin Incompletely left bundle branch block Lactic acidosis Elevated BNP Currently on aspirin 325 mg by mouth daily. Started on metoprolol 12.5 mg by mouth twice a day Troponin (currently 1.19. A.m. EKG pending. Cardiology consultation. 2-D echocardiogram pending Lipid panel/hemoglobin A1c ordered Continue heparin drip Serial lactates until cleared Resp: Acute respiratory insufficiency - multifactorial COPD Nasal cannula to maintain saturations greater than or equal to 92% Incentive spirometry while awake Currently on budesonide/formoterol 160/4.5 2 puffs twice a day Albuterol/ipratropium aerosols every 4 hours with albuterol aerosols every 2 hours as needed for dyspnea Methylprednisolone 40 mg IV every 8 hours Chest x-ray on admission revealed mild pulmonary edema. Recheck in a.m. GI: Elevated transaminases Patient is currently nothing by mouth except for medications Pantoprazole for GI prophylaxis Docusate sodium/senna 1 tablet twice a day for bowel regimen Recheck transaminases in a.m. : No indication for Reddy catheter Endo: \\ Hyperglycemia Sliding-scale insulin with aspart insulin with Accu-Cheks before meals/at bedtime to maintain euglycemia/low regimen Check hemoglobin A1c and TSH in a.m. Renal: Creatinine currently within normal limits Monitor urine output Accurate I's and O's Heme: Leukocytosis Monitor CBC daily. Follow trends ID: Currently on levofloxacin 750 mg IV daily Pertinent cultures 1224 - blood cultures 2 - no growth Influenza negative MSK: PT evaluate and treat FEN: Replace electrolytes as clinically indicated Access - Utilize peripheral IV. Central line if indicated Prophylaxis - GI - pantoprazole - DVT - SCD/heparin drip Level II follow-up Tico Mauricio MD Nov 04, 2017 06:44
[2017-11-04] MEDS ORDERED: RESP: ALBUTEROL 2.5 MG/3 ML NEB (PRN) NEB (07:00)
--- NOTE | 2017-11-04 07:26 | EKG ---
Date Performed: 11/03/2017 Time Performed: 19:35:12 PTAGE: 81 years EKG: SINUS TACHYCARDIA LEFT BUNDLE BRANCH BLOCK PREVIOUS TRACING : 11/03/2017 18.41 Compared to previous tracing, probably no significant change, though cannot rule out atrial flutter 2:1 AV conduction on previous tracing. DOCTOR: Jason Hanson Interpretating Date/Time 11/04/2017 07:25:01
--- NOTE | 2017-11-04 07:29 | EKG ---
Date Performed: 11/03/2017 Time Performed: 18:41:09 PTAGE: 81 years EKG: POSSIBLE ATRIAL FLUTTER WITH 2:1 AV CONDUCTION, LEFT BUNDLE BRANCH BLOCK PREVIOUS TRACING : 11/02/2017 10.44 Compared to previous tracing, heart rate has increase d, possible atrial flutter has replaced Sinus rhythm . DOCTOR: Jason Hanson Interpretating Date/Time 11/04/2017 07:28:24
[2017-11-04] MEDS: METOPROLOL TARTRATE 25 MG TAB PO SCH ×2 (08:29→20:59)
[2017-11-04] MEDS: DOCUSATE SODIUM 50 MG/SENNA 8.6 MG TAB PO SCH ×3 (08:29→20:14)
[2017-11-04] MEDS: PANTOPRAZOLE SOD 40 MG DELAYED RELEASE TAB PO SCH (08:29)
[2017-11-04] MEDS: ASPIRIN 325 MG TAB PO SCH (08:29)
[2017-11-04] MEDS ORDERED: FAMOTIDINE 20 MG/2 ML VIAL IV PUSH SCH (09:00)
[2017-11-04] MEDS ORDERED: methylPREDNISolone SOD SUCC 125 MG/2 ML VIAL IV PUSH SCH (09:00)
[2017-11-04] MEDS: BUDESONIDE-FORMOTEROL 160/4.5 MCG INHALER INH SCH ×2 (14:01→20:13)
[2017-11-04] MEDS: methylPREDNISolone SOD SUCC 40 MG/1 ML VIAL IV PUSH SCH ×2 (14:26→21:00)
[2017-11-04] MEDS ORDERED: CARVEDILOL 6.25 MG TAB PO SCH (21:00)
[2017-11-04] MEDS ORDERED: ISOSORBIDE MONONITRATE 30 MG TAB PO ONE (21:30)
[2017-11-04] MEDS: LISINOPRIL 10 MG TAB PO SCH (21:39)
[2017-11-04] MEDS ORDERED: CLOPIDOGREL 75 MG TAB PO ONE (21:45)
[2017-11-04] MEDS ORDERED: CARVEDILOL 6.25 MG TAB PO ONE (21:45)
[2017-11-05] VITALS (24 sets, daily range): BP systolic 141–189; BP diastolic 65–98; PULSE 61–98; RESP 14–26; TEMP 97.9–98.4; O2SAT 92–98
[2017-11-05 01:49] LABS: HEMATOCRIT 36.3 % (35.0-46.0); HEMOGLOBIN 12.4 GM/DL (11.6-15.3); MEAN CELL VOLUME 88.3 FL (80.0-100.0); MEAN CORPUSCULAR HEMOGLOBIN 30.2 PG (27.0-34.0); MEAN CORPUSCULAR HGB CONC 34.2 % (32.0-36.0); MEAN PLATELET VOLUME 8.3 FL (7.0-11.0); PLATELET COUNT 205 TH/MM3 (150-450); RED BLOOD COUNT 4.12 MIL/MM3 (4.00-5.30); RED CELL DISTRIBUTION WIDTH 13.5 % (11.6-17.2); WHITE BLOOD COUNT 11.1 TH/MM3 (4.0-11.0)
[2017-11-05 02:45] LABS: ALBUMIN 2.8 GM/DL (3.4-5.0); ALKALINE PHOSPHATASE 63 U/L (45-117); ALT (GPT) 46 U/L (10-53); AST (GOT) 38 U/L (15-37); BICARBONATE 26.1 MEQ/L (21.0-32.0); BLOOD UREA NITROGEN 19 MG/DL (7-18); CALCIUM 7.8 MG/DL (8.5-10.1); CHLORIDE 108 MEQ/L (98-107); CHOLESTEROL 108 MG/DL (120-200); CHOLESTEROL/ HDL RATIO 2.79 RATIO; CREATININE 0.59 MG/DL (0.50-1.00); DIRECT BILIRUBIN ADULT 0.1 MG/DL (0.0-0.2); GLOMERULAR FILTRATION RATE 98 ML/MIN (>89); GLUCOSE,RANDOM 127 MG/DL (74-106); HDL CHOLESTEROL 38.6 MG/DL (40.0-60.0); INDIRECT BILIRUBIN 0.1 MG/DL (0.0-0.8); LDL CHOLESTEROL 54 MG/DL (0-99); MAGNESIUM 2.3 MG/DL (1.5-2.5); PHOSPHORUS 2.5 MG/DL (2.5-4.9); SODIUM (NA) 140 MEQ/L (136-145); TOTAL BILIRUBIN ADULT 0.2 MG/DL (0.2-1.0); TOTAL PROTEIN 6.1 GM/DL (6.4-8.2); TRIGLYCERIDES 78 MG/DL (42-150)
[2017-11-05] MEDS: CHLORHEXIDINE GLUCONATE 2 % 1 PACK (2 CLOTHS) TOP SCH (02:45)
[2017-11-05] MEDS: RESP: ALBUTEROL 2.5 MG/IPRATROPIUM 0.5 MG NEB (SCH) INH ×5 (04:03→19:00)
[2017-11-05] MEDS: methylPREDNISolone SOD SUCC 40 MG/1 ML VIAL IV PUSH SCH ×2 (05:15→20:30)
[2017-11-05] MEDS: HEPARIN-D5W 25,000 U/250 ML 250 ML IV PRN (05:44)
--- NOTE | 2017-11-05 06:07 | MB ---
cc: CALEB KAY MD DATE OF CONSULTATION 11/04/2017 HISTORY OF PRESENT ILLNESS An 81-year-old white female with a history of severe COPD who presented with progressive shortness of breath. She also had chest pain yesterday her. Her troponins are mildly elevated. She is severely hypertensive. Her chest pain has resolved and her breathing is improving. PAST MEDICAL HISTORY P positive for - 1. History of COPD. 2. Gastroesophageal reflux disease. 3. Insomnia. 4. Recently diagnosed diabetes. PAST SURGICAL HISTORY 1. . 2. Cholecystectomy. MEDICATIONS 1. Reglan. 2. Medrol. 3. Amoxicillin. 4. Cipro. 5. ProAir. 6. Symbicort. ALLERGIES PREGABALIN. CODEINE. ASPIRIN. TRAZODONE. TAPE. SOCIAL HISTORY The patient smokes half pack a day. She does not drink alcohol. FAMILY HISTORY Negative for heart disease. REVIEW OF SYSTEMS Otherwise negative. PHYSICAL EXAMINATION VITAL SIGNS: Blood pressure 199/90, pulse 78 and irregular. HEENT: Negative. 2+ carotid upstroke. No bruits. LUNGS: With decreased breath sounds. HEART: Irregular with no murmur or gallop. ABDOMEN: Soft. No bruits. EXTREMITIES: Without edema. 2+ distal pulses. NEUROLOGIC: Exam is grossly nonfocal. EKG was reviewed and showed sinus tachycardia and left bundle-branch block. Telemetry now shows sinus rhythm with PACs and PVCs. LABORATORY DATA Hemoglobin 13.1. Potassium 3.6, creatinine 0.9. Troponin 0.28, 1.2, 1.0, 0.9 and 0.6. BNP 399. DIAGNOSES 1. Acute respiratory insufficiency. 2. Severe COPD. 3. Elevated troponin. 4. Left bundle-branch block. 5. Hypertension. DISPOSITION 1. Ms. Knox will be monitored in the ICU. 2. We will titrate her anti-hypertensive therapy including her beta armando. 3. We will obtain an echocardiogram to evaluate her left ventricular function. 4. I will follow her for cardiology during her hospitalization. Dhiraj Hunter MD OQ/SSB /9:10 PM /5:43 AM [facility]
--- NOTE | 2017-11-05 06:23 | RADRPT ---
EXAM DATE/TIME: 11/05/2017 05:04 [facility] COMPARISON: CHEST SINGLE AP, November 03, 2017, 19:05. INDICATIONS : Short of breath. MEDICAL HISTORY : Chronic obstructive pulmonary disease. SURGICAL HISTORY : Cholecystectomy. section. ENCOUNTER: Subsequent ACUITY: 3 days PAIN SCORE: Non-responsive. LOCATION: Bilateral chest FINDINGS: There is mild prominence of the interstitial markings not significantly changed. There are atheroscle rotic calcifications of the aorta due to chronic atherosclerotic disease. Chronic degenerative change s are present in bilateral shoulders. Heart and mediastinum are unremarkable for technique. CONCLUSION: No appreciable change. Jo-Ann Abdi MD on November 05, 2017 at 6:21 Board Certified Radiologist. This report was verified electronically.
[2017-11-05] MEDS: BUDESONIDE-FORMOTEROL 160/4.5 MCG INHALER INH SCH ×2 (08:29→20:30)
[2017-11-05] MEDS: PANTOPRAZOLE SOD 40 MG DELAYED RELEASE TAB PO SCH (08:30)
[2017-11-05] MEDS: ASPIRIN 325 MG TAB PO SCH (08:30)
[2017-11-05] MEDS: LISINOPRIL 10 MG TAB PO SCH (08:30)
[2017-11-05] MEDS: DOCUSATE SODIUM 50 MG/SENNA 8.6 MG TAB PO SCH ×2 (08:32→20:28)
[2017-11-05] MEDS: CLOPIDOGREL 75 MG TAB PO SCH (08:33)
--- NOTE | 2017-11-05 08:34 | HHI.CCPN ---
Subjective Remarks/Hospital Course This is an 81-year-old female with a history of COPD who presented yesterday the emergency department with the chief complaint of worsening shortness of breath over the last few days. She denies fever, chills. She endorses chronic sputum production but no change in the quality or consistency or amount of sputum production. Yesterday she denied any chest pain or dyspnea on exertion, however today she endorses a chest tightness that she describes as "a tightness underneath her breasts ". She states that this chest tightness last 5 or 10 minutes and then was away on its own. No exacerbating or alleviating factors. In the emergency department yesterday she was given a steroid Dosepak and sent home with frequent nebs. She represents tachycardic and hypertensive in the emergency department. Her troponins were 0.05 yesterday and they've risen to 0.28 today with an associated rise in creatinine kinase. She denies having any history of coronary artery disease. She denies nausea, vomiting, abdominal pain. She denies any radiating of this chest pain. In the emergency department she was labored in her breathing and hypoxic and was placed initially on nonrebreather and then BiPAP. Chest x-ray shows early pulmonary vascular congestion and possible pulmonary edema. The emergency room she was given 40 mg of IV Lasix with good diuresis and was weaned down to nasal cannula oxygen. When I evaluated the patient she was no longer labored but can speak in complete sentences. EKG both yesterday and today demonstrate a widened QRS what appears to be in incomplete left bundle-branch block. No overt evidence of STEMI criteria. Other laboratory evidence is positive for leukocytosis to 16.4 with an 81% neutrophil predominance, slightly elevated AST/LT, BNP of 399, and lactate of 3.5. 11/04: MAXIMUM TEMPERATURE 100. Currently 99.4. Denies chest pain currently. Likely remains elevated but downtrending at 3.0. Troponin bump to 1.19. A.m. EKG pending. Echocardiogram ordered. Heparin drip and received asked him. Low-dose beta armando ordered. Subjective 11/05: Resting in bed in no acute distress on 2 L nasal cannula. Denies chest pain. Remains on heparin drip. Blood pressure better controlled. Objective Vital Signs Date Time Temp Pulse Resp B/P (MAP) Pulse Ox O2 Delivery O2 Flow Rate FiO2 12/26/17 06:00 69 11/05/17 04:05 95 Nasal Cannula 2.00 11/05/17 04:00 98.4 14 148/74 (98) 11/03/17 19:20 40 Intake and Output 11/05/17 11/05/17 11/06/17 08:00 16:00 00:00 Intake Total 342.3 ml Output Total 100 ml Balance 242.3 ml Result Diagram: 11/05/17 0140 11/05/17 0140 Other Results Microbiology Date/Time Source Procedure Growth Status 11/03/17 19:45 Blood Peripheral Aerobic Blood Culture - Preliminary NO GROWTH IN 1 DAY Resulted 11/03/17 19:45 Blood Peripheral Anaerobic Blood Culture - Preliminary NO GROWTH IN 1 DAY Resulted 11/03/17 19:50 Nasal Washing Influenza Types A,B Antigen (HERMINIA) - Final NEGATIVE FOR FLU A AND B ANTIGEN.... Complete Imaging Last Impressions Chest X-Ray 11/05/17 0600 Signed Impressions: Service Date/Time: Sunday, November 05, 2017 05:04 - CONCLUSION: No appreciable change. Jo-Ann Abdi MD Objective Remarks GENERAL: 79-year-old female resting in bed in no acute distress on nasal cannula HEENT: Normocephalic. Atraumatic. Pupils equal, round, reactive, conjugate. Mucous membranes are moist and pink. Oropharynx without erythema or exudates NECK: Trachea is midline. There is no JVD. CHEST: Diminished breath sounds throughout. Currently without any wheezing CARDIOVASCULAR: RRR. S1, S2 no S4. Do not appreciate murmur. ABDOMEN: Soft, nontender, nondistended. Hypoactive bowel sounds MUSCULOSKELETAL: Pulses 2+. No peripheral edema. NEUROLOGICAL: RASS 0. Follows commands. No focal deficits. A/P Assessment and Plan Neuro/Psych: Acetaminophen 650 mg by mouth every 6 hours fever/pain 1-10 Morphine sulfate 2 mg IV every 3 hours. Pain 8 through 10 CV: Elevated troponin Incompletely left bundle branch block Lactic acidosis Elevated BNP Currently on aspirin 325 mg by mouth daily. Added clopidogrel 75 mg daily Started on carvedilol 12.5 mg by mouth twice a day and lisinopril 10 mg daily Troponin peaked at 1.19. Currently downward trending A.m. EKG pending. Cardiology consultation Dr. Quadrat. 2-D echocardiogram pending Lipid panel revealed low cholesterol. Started on atorvastatin 10 mg daily Continue heparin drip 900 units an hour until discontinued by cardiology Serial lactates until cleared Resp: Acute respiratory insufficiency - multifactorial COPD Nasal cannula to maintain saturations greater than or equal to 92% Incentive spirometry while awake Currently on budesonide/formoterol 160/4.5 2 puffs twice a day Albuterol/ipratropium aerosols every 4 hours with albuterol aerosols every 2 hours as needed for dyspnea Methylprednisolone 40 mg IV every 8 hours Chest x-ray 11/05 revealed mild pulmonary edema. Recheck in a.m. 11/06 GI: Elevated transaminases Hypoalbuminemia ADA diet Pantoprazole 40 mg daily for GI prophylaxis Docusate sodium/senna 1 tablet twice a day for bowel regimen Recheck transaminases in a.m. : No indication for Reddy catheter Endo: Hyperglycemia Low TSH Sliding-scale insulin with aspart insulin with Accu-Cheks before meals/at bedtime to maintain euglycemia/low regimen Check hemoglobin A1c and TSH 0.16. Check free T4/T3 in a.m. Renal: Creatinine currently within normal limits Monitor urine output Accurate I's and O's Heme: Leukocytosis Monitor CBC daily. Follow trends ID: Currently on levofloxacin 750 mg IV every other day Pertinent cultures 1224 - blood cultures 2 - no growth Influenza negative MSK: PT evaluate and treat FEN: Replace electrolytes as clinically indicated Access - Utilize peripheral IV. Central line if indicated Prophylaxis - GI - pantoprazole - DVT - SCD/heparin drip Level II follow-up Tico Mauricio MD Nov 05, 2017 08:34
[2017-11-05] MEDS ORDERED: LEVOFLOXACIN 750 MG PREMIX INJ 150 ML IV SCH (09:00)
[2017-11-05] MEDS ORDERED: CARVEDILOL 6.25 MG TAB PO SCH (09:00)
[2017-11-05] MEDS ORDERED: CLOPIDOGREL 75 MG TAB PO ONE (09:15)
[2017-11-05] MEDS: INSULIN NovoLIN REGULAR SUPPLEMENTAL SCALE SQ SCH ×3 (12:00→20:30)
--- NOTE | 2017-11-05 12:30 | HHI.PR ---
Subjective Remarks Follow-up respiratory failure/COPD exacerbation/left bundle branch block 11/05/17-patient seen and examined, she reported improvement or shortness of breath and denies any chest pain. She was transferred to CICU Objective Vitals Vital Signs Date Time Temp Pulse Resp B/P (MAP) Pulse Ox O2 Delivery O2 Flow Rate FiO2 11/05/17 12:17 61 11/05/17 11:02 98.1 69 18 160/83 (108) 97 11/05/17 11:00 67 11/05/17 10:00 72 11/05/17 08:48 93 Nasal Cannula 3.00 11/05/17 08:00 77 11/05/17 08:00 98.2 77 26 153/70 (97) 98 11/05/17 07:00 Nasal Cannula 2.00 11/05/17 06:00 69 11/05/17 04:05 95 Nasal Cannula 2.00 11/05/17 04:00 89 11/05/17 04:00 98.4 89 14 148/74 (98) 95 11/05/17 02:00 64 11/05/17 00:00 98.4 74 21 141/65 (90) 95 11/05/17 00:00 74 11/04/17 22:00 86 11/04/17 21:23 97 Nasal Cannula 2.00 11/04/17 20:00 99.9 78 31 197/88 (124) 95 11/04/17 20:00 78 11/04/17 19:00 Nasal Cannula 2.00 11/04/17 18:00 107 11/04/17 16:00 99.1 96 30 150/66 (94) 94 11/04/17 16:00 96 11/04/17 14:00 101 I/O 11/04/17 11/04/17 11/04/17 11/05/17 11/05/17 11/05/17 07:00 15:00 23:00 07:00 15:00 23:00 Intake Total 265.5 ml 159.8 ml 342.3 ml Output Total 800 ml 200 ml 100 ml Balance -534.5 ml -40.2 ml 242.3 ml Intake Oral 60 ml 80 ml 240 ml IV Total 205.5 ml 79.8 ml 102.3 ml Output Urine Total 800 ml 200 ml 100 ml # Voids 4 3 # Bowel Movements 0 Result Diagram: 11/05/17 0140 11/05/17 0140 Imaging Last Impressions Chest X-Ray 11/05/17 0600 Signed Impressions: Service Date/Time: Sunday, November 05, 2017 05:04 - CONCLUSION: No appreciable change. Jo-Ann Abdi MD Objective Remarks GENERAL: NAD SKIN: Warm and dry. HEAD: Normocephalic. EYES: No scleral icterus. No injection or drainage. NECK: Supple, trachea midline. No JVD or lymphadenopathy. CARDIOVASCULAR: Regular rate and rhythm without murmurs, gallops, or rubs. RESPIRATORY: Breath sounds equal bilaterally. No accessory muscle use. GASTROINTESTINAL: Abdomen soft, non-tender, nondistended. MUSCULOSKELETAL: No cyanosis, or edema. BACK: Nontender without obvious deformity. No CVA tenderness. A/P Problem List: (1) Respiratory failure ICD Code: J96.90 - Respiratory failure, unspecified, unspecified whether with hypoxia or hypercapnia (2) Left bundle branch block ICD Code: I44.7 - Left bundle-branch block, unspecified (3) COPD exacerbation ICD Code: J44.1 - Chronic obstructive pulmonary disease with (acute) exacerbation Status: Acute Assessment and Plan 81-year-old female with Elevated troponin Incompletely left bundle branch block Lactic acidosis-resolved Elevated BNP Currently on aspirin 325 mg by mouth daily,clopidogrel 75 mg daily Continue carvedilol 12.5 mg by mouth twice a day and lisinopril 10 mg daily. Continue statin Patient input from cardiology pending 2-D echo Heparin discontinued by cardiology Acute respiratory insufficiency - multifactorial COPD exacerbation Nasal cannula to maintain saturations greater than or equal to 92% Incentive spirometry while awake Currently on budesonide/formoterol 160/4.5 and add Spiriva Decrease Solu-Medrol to 40 mg every 12 and continue DuoNeb Continue Levaquin Hyperglycemia Low TSH Sliding-scale insulin with aspart insulin with Accu-Cheks before meals/at bedtime to maintain euglycemia/low regimen hemoglobin A1c pending TSH 0.16. Check free T4/T3 in a.m. PT consult to treat and eval Prophylaxis - GI - pantoprazole - DVT - SCD/heparin Ryne Wong MD Nov 05, 2017 12:30
[2017-11-05 16:22] LABS: HEMOGLOBIN A1C 5.5 % (4.3-6.0)
--- NOTE | 2017-11-05 17:31 | EKG ---
Date Performed: 11/04/2017 Time Performed: 11:28:01 PTAGE: 81 years EKG: Sinus rhythm INTRAVENTRICULAR CONDUCTION DELAY LEFT VENTRICULAR HYPERTROPHY AND ST-T CHANGE ABNORMAL ECG Compared to PREVIOUS TRACING , the patient is no longer tachycardic. PREVIOUS TRACIN11/03/2017 19. 35 DOCTOR: Ann Castro Interpretating Date/Time 11/05/2017 17:31:07
--- NOTE | 2017-11-05 17:59 | PD.CARD.PN ---
Subjective Subjective Remarks No CP or SOB, feels better Objective Medications Current Medications Medications (Trade) Dose Ordered Sig/Karl Route Start Time Stop Time Status Last Admin (NS Flush) 2 ml UNSCH PRN IVF 11/03/17 18:45 11/03/17 20:20 (Duoneb Neb) 1 ampule Q4HR NEB INH 11/04/17 00:00 11/05/17 15:09 (Lopressor Inj) 5 mg Q5M PRN IV PUSH 11/03/17 21:30 11/04/17 18:20 Potassium Chloride 100 ml @ 50 mls/hr Q2H PRN IV 11/03/17 21:30 Potassium Chloride 100 ml @ 50 mls/hr Q2H PRN IV 11/03/17 21:30 (K-Lyte Cl Eff) 50 meq UNSCH PRN PO 11/03/17 21:30 Potassium Chloride 100 ml @ 25 mls/hr UNSCH PRN IV 11/03/17 21:30 Potassium Chloride 100 ml @ 50 mls/hr Q2H PRN IV 11/03/17 21:30 Magnesium Sulfate 4 gm/Sodium Chloride 100 ml @ 50 mls/hr UNSCH PRN IV 11/03/17 21:30 (Mag-Ox) 800 mg UNSCH PRN PO 11/03/17 21:30 Magnesium Sulfate 2 gm/Sodium Chloride 100 ml @ 50 mls/hr UNSCH PRN IV 11/03/17 21:30 (K-Phos) 2,000 mg Q4H PRN PO 11/03/17 21:30 Sodium Phosphate 30 mmol/Sodium Chloride 250 ml @ 42 mls/hr UNSCH PRN IV 11/03/17 21:30 (K-Phos) 2,000 mg UNSCH PRN PO/TUBE 11/03/17 21:30 Potassium Phosphate 30 mmol/ Sodium Chloride 260 ml @ 42 mls/hr UNSCH PRN IV 11/03/17 21:30 (D50w (Vial) Inj) 25 ml UNSCH PRN IV PUSH 11/03/17 21:30 (Tylenol) 650 mg Q6H PRN PO 11/03/17 21:30 (Zofran Inj) 4 mg Q6H PRN IV PUSH 11/03/17 21:30 Miscellaneous Information 1 Q361D XX 11/03/17 21:30 11/03/17 21:30 (Chlorhexidine 2% Cloth) 3 pack Taper DAILY@04 TOP 11/04/17 04:00 10/31/18 03:59 (Chlorhexidine 2% Cloth) 3 pack UNSCH PRN TOP 11/03/17 21:30 (Sandie-Colace) 1 tab BID PO 11/04/17 09:00 (Milk Of Magnesia Liq) 30 ml Q12H PRN PO 11/03/17 21:30 (Aspirin) 325 mg DAILY PO 11/04/17 09:00 11/05/17 08:30 (Morphine Inj) 2 mg Q3H PRN IM 11/03/17 21:30 (Symbicort 160-4.5 Mcg Inh) 2 puff Q12HR INH 11/04/17 09:00 11/05/17 08:29 (Albuterol Neb) 2.5 mg Q2HR NEB PRN NEB 11/04/17 07:00 (NovoLIN R SUPPLEMENTAL SCALE) 1 ACHS SQ 11/04/17 08:00 (Protonix) 40 mg DAILY PO 11/04/17 09:00 11/05/17 08:30 Levofloxacin/ Dextrose 150 ml @ 100 mls/hr Q48H IV 11/05/17 09:00 11/05/17 08:32 (Prinivil) 10 mg DAILY PO 11/04/17 21:30 11/05/17 08:30 (Plavix) 75 mg DAILY PO 11/05/17 09:00 11/05/17 08:33 (Coreg) 12.5 mg Q12HR PO 11/05/17 21:00 (Lipitor) 10 mg HS PO 11/05/17 21:00 (SoluMEDROL INJ) 40 mg Q12HR IV PUSH 11/05/17 21:00 (Spiriva Inh) 18 mcg DAILY INH 11/06/17 09:00 Vital Signs / I&O Vital Signs Date Time Temp Pulse Resp B/P (MAP) Pulse Ox O2 Delivery O2 Flow Rate FiO2 11/05/17 16:03 81 11/05/17 15:34 97.9 78 18 156/80 (105) 96 11/05/17 15:09 93 21 11/05/17 15:00 90 11/05/17 14:00 80 11/05/17 13:00 70 11/05/17 12:17 61 11/05/17 11:02 98.1 69 18 160/83 (108) 97 11/05/17 11:00 67 11/05/17 10:00 72 11/05/17 08:48 93 Nasal Cannula 3.00 11/05/17 08:00 77 11/05/17 08:00 98.2 77 26 153/70 (97) 98 11/05/17 07:00 Nasal Cannula 2.00 11/05/17 06:00 69 11/05/17 04:05 95 Nasal Cannula 2.00 11/05/17 04:00 89 11/05/17 04:00 98.4 89 14 148/74 (98) 95 11/05/17 02:00 64 11/05/17 00:00 98.4 74 21 141/65 (90) 95 11/05/17 00:00 74 11/04/17 22:00 86 11/04/17 21:23 97 Nasal Cannula 2.00 11/04/17 20:00 99.9 78 31 197/88 (124) 95 11/04/17 20:00 78 11/04/17 19:00 Nasal Cannula 2.00 11/04/17 18:00 107 I/O 11/04/17 11/04/17 11/04/17 11/05/17 11/05/17 11/05/17 07:00 15:00 23:00 07:00 15:00 23:00 Intake Total 265.5 ml 159.8 ml 342.3 ml Output Total 800 ml 200 ml 100 ml Balance -534.5 ml -40.2 ml 242.3 ml Intake Oral 60 ml 80 ml 240 ml IV Total 205.5 ml 79.8 ml 102.3 ml Output Urine Total 800 ml 200 ml 100 ml # Voids 4 3 # Bowel Movements 0 Physical Exam GENERAL: In NAD. SKIN: Warm and dry. HEAD: Normocephalic. EYES: No scleral icterus. No injection or drainage. NECK: Supple, trachea midline. No JVD or lymphadenopathy. CARDIOVASCULAR: Regular rate and rhythm without murmurs, gallops, or rubs. RESPIRATORY: Breath sounds equal bilaterally. No accessory muscle use. GASTROINTESTINAL: Abdomen soft, non-tender, nondistended. MUSCULOSKELETAL: No cyanosis, trace edema. Laboratory Laboratory Tests Test 11/04/17 19:19 11/05/17 01:40 11/05/17 09:26 Troponin I 0.64 NG/ML White Blood Count 11.1 TH/MM3 Red Blood Count 4.12 MIL/MM3 Hemoglobin 12.4 GM/DL Hematocrit 36.3 % Mean Corpuscular Volume 88.3 FL Mean Corpuscular Hemoglobin 30.2 PG Mean Corpuscular Hemoglobin Concent 34.2 % Red Cell Distribution Width 13.5 % Platelet Count 205 TH/MM3 Mean Platelet Volume 8.3 FL Activated Partial Thromboplast Time 35.3 SEC 42.7 SEC Blood Urea Nitrogen 19 MG/DL Creatinine 0.59 MG/DL Random Glucose 127 MG/DL Total Protein 6.1 GM/DL Albumin 2.8 GM/DL Calcium Level 7.8 MG/DL Phosphorus Level 2.5 MG/DL Magnesium Level 2.3 MG/DL Alkaline Phosphatase 63 U/L Aspartate Amino Transf (AST/SGOT) 38 U/L Alanine Aminotransferase (ALT/SGPT) 46 U/L Total Bilirubin 0.2 MG/DL Direct Bilirubin 0.1 MG/DL Sodium Level 140 MEQ/L Potassium Level 4.1 MEQ/L Chloride Level 108 MEQ/L Carbon Dioxide Level 26.1 MEQ/L Anion Gap 6 MEQ/L Estimat Glomerular Filtration Rate 98 ML/MIN Hemoglobin A1c 5.5 % Lactic Acid Level 0.7 mmol/L Indirect Bilirubin 0.1 MG/DL Triglycerides Level 78 MG/DL Cholesterol Level 108 MG/DL LDL Cholesterol 54 MG/DL HDL Cholesterol 38.6 MG/DL Cholesterol/HDL Ratio 2.79 RATIO Thyroid Stimulating Hormone 3rd Gen 0.164 uIU/ML Imaging Last 24 hours Impressions Chest X-Ray 11/05/17 0600 Signed Impressions: Service Date/Time: Sunday, November 05, 2017 05:04 - CONCLUSION: No appreciable change. Jo-Ann Abdi MD Assessment and Plan Problem List: (1) Acute respiratory failure with hypoxia ICD Codes: J96.01 - Acute respiratory failure with hypoxia Status: Acute (2) COPD exacerbation ICD Codes: J44.1 - Chronic obstructive pulmonary disease with (acute) exacerbation Status: Acute (3) Elevated troponin ICD Codes: R74.8 - Abnormal levels of other serum enzymes (4) LBBB (left bundle branch block) ICD Codes: I44.7 - Left bundle-branch block, unspecified (5) HTN (hypertension) ICD Codes: I10 - Essential (primary) hypertension Assessment and Plan Monitor on tele. Continue Plavix and baby ASA. Continue antihypertensive tx. Continue tx for COPD. DC L IJ line.Check echo. Increase activity, PT. Dhiraj Hunter MD Nov 05, 2017 17:59
[2017-11-05] MEDS: ATORVASTATIN 10 MG TAB PO SCH (20:31)
[2017-11-05] MEDS: CARVEDILOL 12.5 MG TAB PO SCH (20:31)
--- NOTE | 2017-11-05 20:45 | ECHRPT ---
Indication: SOB- EVAL WALL MOTION CONCLUSIONS Mildly dilated left ventricle. Wall thickness is normal. The left ventricular systolic function is mildly reduced with an estimated ejection fraction of 45%. Trace mitral valve regurgitation. Mitral annular calcification is present. Mild thickening of the mitral valve leaflets. Aortic valve sclerosis is present. There is mild tricuspid valve regurgitation. There is a trivial pericardial effusion present. BP: 148 / 74 HR: 89 Rhythm: MEASUREMENTS (Male / Female) Normal Values Technical Quality:Good 2D ECHO LV Diastolic Diameter PLAX 4.4 cm 4.2 - 5.9 / 3.9 - 5.3 cm LV Systolic Diameter PLAX 4.0 cm IVS Diastolic Thickness 0.8 cm 0.6 - 1.0 / 0.6 - 0.9 cm LVPW Diastolic Thickness 0.6 cm 0.6 - 1.0 / 0.6 - 0.9 cm LV Relative Wall Thickness 0.3 RV Internal Dim ED PLAX 2.0 cm LA Systolic Diameter LX 3.1 cm 3.0 - 4.0 / 2.7 - 3.8 cm DOPPLER MV Peak Velocity 171.0 cm/s MV Peak Gradient 11.7 mmHg MV Mean Velocity 78.3 cm/s MV Mean Gradient 3.0 mmHg Mitral E Point Velocity 80.8 cm/s Mitral A Point Velocity 133.0 cm/s Mitral E to A Ratio 0.6 TR Peak Velocity 280.0 cm/s TR Peak Gradient 31.4 mmHg FINDINGS LEFT VENTRICLE Mildly dilated left ventricle. Wall thickness is normal. The left ventricular systolic function is mildly reduced with an estimated ejection fraction of 45%. RIGHT VENTRICLE Normal right ventricular size and systolic function. LEFT ATRIUM The left atrial size is normal. RIGHT ATRIUM The right atrial size is normal. ATRIAL SEPTUM Normal atrial septal thickness without atrial level shunting by limited color doppler interrogation. AORTA The aortic root and proximal ascending aorta are normal in size on limited imaging. MITRAL VALVE Trace mitral valve regurgitation. Mitral annular calcification is present. Mild thickening of the mitral valve leaflets. AORTIC VALVE Aortic valve sclerosis is present. TRICUSPID VALVE There is mild tricuspid valve regurgitation. PULMONARY VALVE The pulmonary valve is not well visualized. VESSELS The inferior vena cava is normal in size. PERICARDIUM There is a trivial pericardial effusion present. Dhiraj Hunter MD, FACC (Electronically Signed) Final Date:05 November 2017 20:44
[2017-11-05] MEDS ORDERED: hydrALAZINE HCL 20 MG/ML VIAL IV PUSH ONE (23:45)
[2017-11-06] VITALS (27 sets, daily range): BP systolic 105–184; BP diastolic 64–96; PULSE 60–88; RESP 16–20; TEMP 97.1–98.6; O2SAT 93–97
[2017-11-06] MEDS: RESP: ALBUTEROL 2.5 MG/IPRATROPIUM 0.5 MG NEB (SCH) INH ×7 (00:30→23:54)
--- NOTE | 2017-11-06 03:59 | RADRPT ---
EXAM DATE/TIME: 11/06/2017 03:26 [facility] COMPARISON: CHEST SINGLE AP, November 05, 2017, 5:04. INDICATIONS : Short of breath. MEDICAL HISTORY : Chronic obstructive pulmonary disease. SURGICAL HISTORY : Cholecystectomy. ENCOUNTER: Subsequent ACUITY: 4 - 6 days PAIN SCORE: 0/10 LOCATION: Bilateral chest FINDINGS: The lungs are clear without infiltrate, nodule, or mass. There is no appreciable pleural effusion fo r technique. Heart and mediastinum are unremarkable. Chronic degenerative changes are present in rosas ateral shoulders. CONCLUSION: No acute cardiopulmonary disease. Jo-Ann Abdi MD on November 06, 2017 at 3:57 Board Certified Radiologist. This report was verified electronically.
[2017-11-06] MEDS: CHLORHEXIDINE GLUCONATE 2 % 1 PACK (2 CLOTHS) TOP SCH (04:00)
[2017-11-06] MEDS: INSULIN NovoLIN REGULAR SUPPLEMENTAL SCALE SQ SCH ×4 (08:00→21:00)
[2017-11-06] MEDS: DOCUSATE SODIUM 50 MG/SENNA 8.6 MG TAB PO SCH ×2 (09:00→21:12)
[2017-11-06] MEDS: BUDESONIDE-FORMOTEROL 160/4.5 MCG INHALER INH SCH ×2 (09:03→21:12)
[2017-11-06] MEDS: SODIUM CHLORIDE 0.9% FLUSH 10 ML FLUSH IVF PRN ×2 (09:03→21:13)
[2017-11-06] MEDS: methylPREDNISolone SOD SUCC 40 MG/1 ML VIAL IV PUSH SCH ×2 (09:04→21:13)
[2017-11-06] MEDS: PANTOPRAZOLE SOD 40 MG DELAYED RELEASE TAB PO SCH (09:04)
[2017-11-06] MEDS: CARVEDILOL 12.5 MG TAB PO SCH ×2 (09:05→21:13)
[2017-11-06] MEDS: CLOPIDOGREL 75 MG TAB PO SCH (09:05)
[2017-11-06] MEDS: LISINOPRIL 10 MG TAB PO SCH (09:05)
[2017-11-06] MEDS: ASPIRIN 81 MG CHEW TAB PO SCH (09:06)
[2017-11-06 09:32] LABS: HEMATOCRIT 39.4 % (35.0-46.0); HEMOGLOBIN 13.1 GM/DL (11.6-15.3); MEAN CELL VOLUME 89.2 FL (80.0-100.0); MEAN CORPUSCULAR HEMOGLOBIN 29.6 PG (27.0-34.0); MEAN CORPUSCULAR HGB CONC 33.1 % (32.0-36.0); MEAN PLATELET VOLUME 8.4 FL (7.0-11.0); PLATELET COUNT 232 TH/MM3 (150-450); RED BLOOD COUNT 4.42 MIL/MM3 (4.00-5.30); RED CELL DISTRIBUTION WIDTH 13.9 % (11.6-17.2); WHITE BLOOD COUNT 7.6 TH/MM3 (4.0-11.0)
[2017-11-06 10:10] LABS: ALBUMIN 2.8 GM/DL (3.4-5.0); AST (GOT) 32 U/L (15-37); BICARBONATE 26.1 MEQ/L (21.0-32.0); BLOOD UREA NITROGEN 30 MG/DL (7-18); CALCIUM 8.4 MG/DL (8.5-10.1); CHLORIDE 105 MEQ/L (98-107); CREATININE 0.71 MG/DL (0.50-1.00); GLOMERULAR FILTRATION RATE 79 ML/MIN (>89); GLUCOSE,RANDOM 103 MG/DL (74-106); MAGNESIUM 2.3 MG/DL (1.5-2.5); SODIUM (NA) 139 MEQ/L (136-145)
[2017-11-06 10:23] LABS: ALKALINE PHOSPHATASE 56 U/L (45-117); ALT (GPT) 46 U/L (10-53); DIRECT BILIRUBIN ADULT 0.1 MG/DL (0.0-0.2); FREE T3 1.47 PG/ML (2.18-3.98); INDIRECT BILIRUBIN 0.2 MG/DL (0.0-0.8); PHOSPHORUS 3.1 MG/DL (2.5-4.9); TOTAL BILIRUBIN ADULT 0.3 MG/DL (0.2-1.0); TOTAL PROTEIN 6.1 GM/DL (6.4-8.2)
--- NOTE | 2017-11-06 11:36 | PD.CARD.PN ---
Subjective Subjective Remarks No CP or SOB, feels fine Objective Medications Current Medications Medications (Trade) Dose Ordered Sig/Karl Route Start Time Stop Time Status Last Admin (NS Flush) 2 ml UNSCH PRN IVF 11/03/17 18:45 11/06/17 09:03 (Duoneb Neb) 1 ampule Q4HR NEB INH 11/04/17 00:00 11/06/17 00:30 (Lopressor Inj) 5 mg Q5M PRN IV PUSH 11/03/17 21:30 11/04/17 18:20 (D50w (Vial) Inj) 25 ml UNSCH PRN IV PUSH 11/03/17 21:30 (Tylenol) 650 mg Q6H PRN PO 11/03/17 21:30 11/05/17 23:48 (Zofran Inj) 4 mg Q6H PRN IV PUSH 11/03/17 21:30 11/05/17 18:10 Miscellaneous Information 1 Q361D XX 11/03/17 21:30 11/03/17 21:30 (Chlorhexidine 2% Cloth) 3 pack Taper DAILY@04 TOP 11/04/17 04:00 10/31/18 03:59 (Chlorhexidine 2% Cloth) 3 pack UNSCH PRN TOP 11/03/17 21:30 (Sandie-Colace) 1 tab BID PO 11/04/17 09:00 (Milk Of Magnesia Liq) 30 ml Q12H PRN PO 11/03/17 21:30 (Morphine Inj) 2 mg Q3H PRN IM 11/03/17 21:30 (Symbicort 160-4.5 Mcg Inh) 2 puff Q12HR INH 11/04/17 09:00 11/06/17 09:03 (Albuterol Neb) 2.5 mg Q2HR NEB PRN NEB 11/04/17 07:00 (NovoLIN R SUPPLEMENTAL SCALE) 1 ACHS SQ 11/04/17 08:00 (Protonix) 40 mg DAILY PO 11/04/17 09:00 11/06/17 09:04 Levofloxacin/ Dextrose 150 ml @ 100 mls/hr Q48H IV 11/05/17 09:00 11/05/17 08:32 (Prinivil) 10 mg DAILY PO 11/04/17 21:30 12/27/17 09:05 (Plavix) 75 mg DAILY PO 11/05/17 09:00 11/06/17 09:05 (Coreg) 12.5 mg Q12HR PO 11/05/17 21:00 11/06/17 09:05 (Lipitor) 10 mg HS PO 11/05/17 21:00 11/05/17 20:31 (SoluMEDROL INJ) 40 mg Q12HR IV PUSH 11/05/17 21:00 11/06/17 09:04 (Spiriva Inh) 18 mcg DAILY INH 11/06/17 09:00 (Aspirin Chew) 81 mg DAILY PO 11/06/17 09:00 11/06/17 09:06 Vital Signs / I&O Vital Signs Date Time Temp Pulse Resp B/P (MAP) Pulse Ox O2 Delivery O2 Flow Rate FiO2 11/06/17 10:00 70 11/06/17 09:00 72 11/06/17 08:00 98.3 72 20 184/94 (124) 96 11/06/17 08:00 70 11/06/17 08:00 95 Room Air 11/06/17 07:00 66 11/06/17 06:00 75 11/06/17 05:00 68 11/06/17 04:00 72 11/06/17 03:30 98.5 74 16 148/76 (100) 95 11/06/17 03:00 70 11/06/17 02:00 73 11/06/17 01:00 72 11/06/17 00:15 76 153/82 (105) 11/06/17 00:00 73 169/96 (120) 11/06/17 00:00 75 11/05/17 23:00 98.3 72 16 189/98 (128) 92 11/05/17 23:00 68 11/05/17 22:00 98 11/05/17 21:00 76 11/05/17 20:00 80 11/05/17 20:00 95 Nasal Cannula 2.00 11/05/17 20:00 98.2 73 16 183/95 (124) 95 11/05/17 19:00 78 11/05/17 18:31 83 11/05/17 17:00 84 11/05/17 16:03 81 11/05/17 15:34 97.9 78 18 156/80 (105) 96 11/05/17 15:09 93 21 11/05/17 15:00 90 11/05/17 14:00 80 11/05/17 13:00 70 11/05/17 12:17 61 I/O 11/05/17 11/05/17 11/05/17 11/06/17 11/06/17 11/06/17 07:00 15:00 23:00 07:00 15:00 23:00 Intake Total 342.3 ml 520 ml 480 ml Output Total 100 ml 350 ml 300 ml Balance 242.3 ml 170 ml 180 ml Intake Oral 240 ml 520 ml 480 ml IV Total 102.3 ml Output Urine Total 100 ml 350 ml 300 ml # Voids 3 2 # Bowel Movements 0 Physical Exam GENERAL: In NAD. SKIN: Warm and dry. HEAD: Normocephalic. EYES: No scleral icterus. No injection or drainage. NECK: Supple, trachea midline. No JVD or lymphadenopathy. CARDIOVASCULAR: Regular rate and rhythm without murmurs, gallops, or rubs. RESPIRATORY: Breath sounds equal bilaterally. No accessory muscle use. GASTROINTESTINAL: Abdomen soft, non-tender, nondistended. MUSCULOSKELETAL: No cyanosis, trace edema. Laboratory Laboratory Tests Test 11/06/17 08:33 White Blood Count 7.6 TH/MM3 Red Blood Count 4.42 MIL/MM3 Hemoglobin 13.1 GM/DL Hematocrit 39.4 % Mean Corpuscular Volume 89.2 FL Mean Corpuscular Hemoglobin 29.6 PG Mean Corpuscular Hemoglobin Concent 33.1 % Red Cell Distribution Width 13.9 % Platelet Count 232 TH/MM3 Mean Platelet Volume 8.4 FL Blood Urea Nitrogen 30 MG/DL Creatinine 0.71 MG/DL Random Glucose 103 MG/DL Total Protein 6.1 GM/DL Albumin 2.8 GM/DL Calcium Level 8.4 MG/DL Phosphorus Level 3.1 MG/DL Magnesium Level 2.3 MG/DL Alkaline Phosphatase 56 U/L Aspartate Amino Transf (AST/SGOT) 32 U/L Alanine Aminotransferase (ALT/SGPT) 46 U/L Total Bilirubin 0.3 MG/DL Direct Bilirubin 0.1 MG/DL Sodium Level 139 MEQ/L Potassium Level 3.9 MEQ/L Chloride Level 105 MEQ/L Carbon Dioxide Level 26.1 MEQ/L Anion Gap 8 MEQ/L Estimat Glomerular Filtration Rate 79 ML/MIN Indirect Bilirubin 0.2 MG/DL Free Thyroxine 1.30 NG/DL Free Triiodothyronine (T3) pg/dL 1.47 PG/ML Imaging Last 24 hours Impressions Chest X-Ray 11/06/17 0600 Signed Impressions: Service Date/Time: Monday, November 06, 2017 03:26 - CONCLUSION: No acute cardiopulmonary disease. Jo-Ann Abdi MD Assessment and Plan Problem List: (1) Acute respiratory failure with hypoxia ICD Codes: J96.01 - Acute respiratory failure with hypoxia Status: Acute (2) COPD exacerbation ICD Codes: J44.1 - Chronic obstructive pulmonary disease with (acute) exacerbation Status: Acute (3) Elevated troponin ICD Codes: R74.8 - Abnormal levels of other serum enzymes (4) LBBB (left bundle branch block) ICD Codes: I44.7 - Left bundle-branch block, unspecified (5) HTN (hypertension) ICD Codes: I10 - Essential (primary) hypertension Assessment and Plan Echo c/w ischemic CM, continue beta armando and lisinopril. Continue Plavix and baby ASA. Continue antihypertensive tx. Continue tx for COPD. Increase activity, PT. Will schedule f/u as outpatient. Dhiraj Hunter MD Nov 06, 2017 11:36
--- NOTE | 2017-11-06 13:08 | HHI.PR ---
Subjective Remarks Follow-up respiratory failure/COPD exacerbation/left bundle branch block 11/05/17-patient seen and examined, she reported improvement or shortness of breath and denies any chest pain. She was transferred to CICU 11/06/17-patient seen and examined, no chest pain or shortness of breath.BP better after arm cuff changed to appropriate size. Patient has been refusing resp therapy Objective Vitals Vital Signs Date Time Temp Pulse Resp B/P (MAP) Pulse Ox O2 Delivery O2 Flow Rate FiO2 11/06/17 12:00 97.1 60 20 149/86 (107) 97 11/06/17 12:00 69 11/06/17 11:00 60 11/06/17 10:00 70 11/06/17 09:00 72 11/06/17 08:00 98.3 72 20 184/94 (124) 96 11/06/17 08:00 70 11/06/17 08:00 95 Room Air 11/06/17 07:00 66 11/06/17 06:00 75 11/06/17 05:00 68 11/06/17 04:00 72 11/06/17 03:30 98.5 74 16 148/76 (100) 95 11/06/17 03:00 70 11/06/17 02:00 73 11/06/17 01:00 72 11/06/17 00:15 76 153/82 (105) 11/06/17 00:00 73 169/96 (120) 11/06/17 00:00 75 11/05/17 23:00 98.3 72 16 189/98 (128) 92 11/05/17 23:00 68 11/05/17 22:00 98 11/05/17 21:00 76 11/05/17 20:00 80 11/05/17 20:00 95 Nasal Cannula 2.00 11/05/17 20:00 98.2 73 16 183/95 (124) 95 11/05/17 19:00 78 11/05/17 18:31 83 11/05/17 17:00 84 11/05/17 16:03 81 11/05/17 15:34 97.9 78 18 156/80 (105) 96 11/05/17 15:09 93 21 11/05/17 15:00 90 11/05/17 14:00 80 I/O 11/05/17 11/05/17 11/05/17 11/06/17 11/06/17 11/06/17 07:00 15:00 23:00 07:00 15:00 23:00 Intake Total 342.3 ml 520 ml 480 ml Output Total 100 ml 350 ml 300 ml Balance 242.3 ml 170 ml 180 ml Intake Oral 240 ml 520 ml 480 ml IV Total 102.3 ml Output Urine Total 100 ml 350 ml 300 ml # Voids 3 2 # Bowel Movements 0 Result Diagram: 11/06/1783211/06/17832 Objective Remarks GENERAL: NAD SKIN: Warm and dry. HEAD: Normocephalic. EYES: No scleral icterus. No injection or drainage. NECK: Supple, trachea midline. No JVD or lymphadenopathy. CARDIOVASCULAR: Regular rate and rhythm without murmurs, gallops, or rubs. RESPIRATORY: Breath sounds equal bilaterally. No accessory muscle use. GASTROINTESTINAL: Abdomen soft, non-tender, nondistended. MUSCULOSKELETAL: No cyanosis, or edema. BACK: Nontender without obvious deformity. No CVA tenderness. A/P Problem List: (1) Respiratory failure ICD Code: J96.90 - Respiratory failure, unspecified, unspecified whether with hypoxia or hypercapnia Status: Resolved (2) Left bundle branch block ICD Code: I44.7 - Left bundle-branch block, unspecified (3) COPD exacerbation ICD Code: J44.1 - Chronic obstructive pulmonary disease with (acute) exacerbation Status: Acute Assessment and Plan 81-year-old female with Elevated troponin Incompletely left bundle branch block Lactic acidosis-resolved Elevated BNP Currently on aspirin 325 mg by mouth daily,clopidogrel 75 mg daily Continue carvedilol 12.5 mg by mouth twice a day and lisinopril 10 mg daily. Continue statin Patient input from cardiology . 2-D echo with EF 45% s/p Heparin Acute respiratory insufficiency - multifactorial COPD exacerbation Nasal cannula to maintain saturations greater than or equal to 92% Incentive spirometry while awake Currently on budesonide/formoterol 160/4.5 and Spiriva Continue Solu-Medrol 40 mg every 12 and continue DuoNeb. We'll switch to by mouth prednisone in a.m. Continue Levaquin Hyperglycemia Low TSH Sliding-scale insulin with aspart insulin with Accu-Cheks before meals/at bedtime to maintain euglycemia/low regimen hemoglobin A1c 5.5 TSH 0.16. PT consult to treat and eval Prophylaxis - GI - pantoprazole - DVT - SCD Discharge Planning Like a discharge in Ryne Whitney MD Nov 06, 2017 13:08
[2017-11-06] MEDS: TIOTROPIUM BROMIDE 18 MCG INH INH SCH (15:30)
[2017-11-06 16:44] LABS: HEMOGLOBIN A1C 5.6 % (4.3-6.0)
[2017-11-06] MEDS: ATORVASTATIN 10 MG TAB PO SCH (21:13)
[2017-11-07] VITALS (29 sets, daily range): BP systolic 156–162; BP diastolic 78–90; PULSE 60–94; RESP 16–18; TEMP 98–98.8; O2SAT 93–95
[2017-11-07] MEDS: CHLORHEXIDINE GLUCONATE 2 % 1 PACK (2 CLOTHS) TOP SCH (04:00)
[2017-11-07] MEDS: RESP: ALBUTEROL 2.5 MG/IPRATROPIUM 0.5 MG NEB (SCH) INH ×6 (04:04→19:04)
[2017-11-07 06:30] LABS: HEMATOCRIT 39.9 % (35.0-46.0); HEMOGLOBIN 13.5 GM/DL (11.6-15.3); MEAN CELL VOLUME 89.8 FL (80.0-100.0); MEAN CORPUSCULAR HEMOGLOBIN 30.3 PG (27.0-34.0); MEAN CORPUSCULAR HGB CONC 33.8 % (32.0-36.0); MEAN PLATELET VOLUME 8.5 FL (7.0-11.0); PLATELET COUNT 253 TH/MM3 (150-450); RED BLOOD COUNT 4.44 MIL/MM3 (4.00-5.30); RED CELL DISTRIBUTION WIDTH 13.9 % (11.6-17.2); WHITE BLOOD COUNT 9.2 TH/MM3 (4.0-11.0)
[2017-11-07 06:57] LABS: CALCIUM 7.9 MG/DL (8.5-10.1); CREATININE 0.69 MG/DL (0.50-1.00)
[2017-11-07] MEDS: INSULIN NovoLIN REGULAR SUPPLEMENTAL SCALE SQ SCH ×4 (08:00→21:00)
[2017-11-07] MEDS: TIOTROPIUM BROMIDE 18 MCG INH INH SCH (09:33)
[2017-11-07] MEDS: BUDESONIDE-FORMOTEROL 160/4.5 MCG INHALER INH SCH ×2 (09:35→21:08)
[2017-11-07] MEDS: methylPREDNISolone SOD SUCC 40 MG/1 ML VIAL IV PUSH SCH ×2 (09:36→21:07)
[2017-11-07] MEDS: CARVEDILOL 12.5 MG TAB PO SCH ×2 (09:36→21:10)
[2017-11-07] MEDS: ASPIRIN 81 MG CHEW TAB PO SCH (09:36)
[2017-11-07] MEDS: DOCUSATE SODIUM 50 MG/SENNA 8.6 MG TAB PO SCH ×2 (09:37→21:00)
[2017-11-07] MEDS: CLOPIDOGREL 75 MG TAB PO SCH (09:37)
[2017-11-07] MEDS: LEVOFLOXACIN 500 MG TAB PO SCH (09:37)
[2017-11-07] MEDS: LISINOPRIL 10 MG TAB PO SCH (09:38)
[2017-11-07] MEDS: PANTOPRAZOLE SOD 40 MG DELAYED RELEASE TAB PO SCH (09:38)
--- NOTE | 2017-11-07 09:44 | HHI.PR ---
Subjective Remarks Follow-up respiratory failure/COPD exacerbation/left bundle branch block 11/05/17-patient seen and examined, she reported improvement or shortness of breath and denies any chest pain. She was transferred to CICU 11/06/17-patient seen and examined, no chest pain or shortness of breath.BP better after arm cuff changed to appropriate size. Patient has been refusing resp therapy 11/07/17-patient seen and examined, states she's having improvement of shortness of breath. Quite anxious about discharge as she would like to go home on 11/08/17 when her daughter comes to picker tender helper. blood pressure improved Objective Vitals Vital Signs Date Time Temp Pulse Resp B/P (MAP) Pulse Ox O2 Delivery O2 Flow Rate FiO2 11/07/17 09:17 94 Room Air 11/07/17 09:17 98.0 94 18 162/90 (114) 94 11/07/17 07:34 93 Nasal Cannula 2.00 11/07/17 06:00 60 11/07/17 05:00 60 11/07/17 04:00 67 11/07/17 03:30 98.8 69 16 95 11/07/17 03:00 75 11/07/17 02:00 71 11/07/17 01:00 76 11/07/17 00:00 72 11/06/17 23:55 95 Nasal Cannula 2.00 11/06/17 23:00 98.3 71 16 146/82 (103) 95 11/06/17 23:00 70 11/06/17 22:00 88 11/06/17 21:00 74 11/06/17 20:00 93 Room Air 11/06/17 20:00 98.6 85 20 158/68 (98) 93 11/06/17 20:00 68 11/06/17 19:00 74 11/06/17 17:00 72 11/06/17 16:00 62 11/06/17 15:22 98.1 71 16 96 11/06/17 15:00 66 11/06/17 14:00 62 11/06/17 13:00 60 11/06/17 12:00 97.1 60 20 149/86 (107) 97 11/06/17 12:00 69 11/06/17 11:00 60 11/06/17 10:00 70 I/O 11/06/17 11/06/17 11/06/17 11/07/17 11/07/17 11/07/17 07:00 15:00 23:00 07:00 15:00 23:00 Intake Total 480 ml 360 ml 360 ml Output Total 300 ml 500 ml 625 ml Balance 180 ml -140 ml -265 ml Intake Oral 480 ml 360 ml 360 ml Output Urine Total 300 ml 500 ml 625 ml # Voids 2 # Bowel Movements 0 1 Result Diagram: 11/07/17 0506 11/07/17 0506 Imaging Last Impressions Chest X-Ray 11/06/17 06 Signed Impressions: Service Date/Time: Monday, November 06, 2017 03:26 - CONCLUSION: No acute cardiopulmonary disease. Jo-Ann Abdi MD Objective Remarks GENERAL: NAD SKIN: Warm and dry. HEAD: Normocephalic. EYES: No scleral icterus. No injection or drainage. NECK: Supple, trachea midline. No JVD or lymphadenopathy. CARDIOVASCULAR: Regular rate and rhythm without murmurs, gallops, or rubs. RESPIRATORY: Breath sounds equal bilaterally. No accessory muscle use. GASTROINTESTINAL: Abdomen soft, non-tender, nondistended. MUSCULOSKELETAL: No cyanosis, or edema. BACK: Nontender without obvious deformity. No CVA tenderness. A/P Problem List: (1) Respiratory failure ICD Code: J96.90 - Respiratory failure, unspecified, unspecified whether with hypoxia or hypercapnia Status: Resolved (2) Left bundle branch block ICD Code: I44.7 - Left bundle-branch block, unspecified (3) COPD exacerbation ICD Code: J44.1 - Chronic obstructive pulmonary disease with (acute) exacerbation Status: Acute Assessment and Plan 81-year-old female with Elevated troponin Incompletely left bundle branch block Lactic acidosis-resolved Elevated BNP Currently on aspirin 325 mg by mouth daily,clopidogrel 75 mg daily Continue carvedilol 12.5 mg by mouth twice a day and lisinopril 10 mg daily. Continue statin Patient input from cardiology . 2-D echo with EF 45% s/p Heparin Acute respiratory insufficiency - multifactorial COPD exacerbation-resolving Nasal cannula to maintain saturations greater than or equal to 92% Incentive spirometry while awake Currently on budesonide/formoterol 160/4.5 and Spiriva Continue Solu-Medrol 40 mg every 12 and continue DuoNeb. We'll switch to by mouth prednisone in a.m. Continue Levaquin Hyperglycemia Low TSH Sliding-scale insulin with aspart insulin with Accu-Cheks before meals/at bedtime to maintain euglycemia/low regimen hemoglobin A1c 5.5 TSH 0.16. PT consult to treat and eval Prophylaxis - GI - pantoprazole - DVT - SCD Discharge Planning discharge in a.m. Ryne Turcios MD Nov 07, 2017 09:44
[2017-11-07] MEDS: LORazepam 0.5 MG TAB PO PRN ×2 (11:14→21:09)
--- NOTE | 2017-11-07 16:12 | PD.CARD.PN ---
Subjective Subjective Remarks No CP or SOB Objective Medications Current Medications Medications (Trade) Dose Ordered Sig/Karl Route Start Time Stop Time Status Last Admin (NS Flush) 2 ml UNSCH PRN IVF 11/03/17 18:45 11/06/17 21:13 (Lopressor Inj) 5 mg Q5M PRN IV PUSH 11/03/17 21:30 11/04/17 18:20 (D50w (Vial) Inj) 25 ml UNSCH PRN IV PUSH 11/03/17 21:30 (Tylenol) 650 mg Q6H PRN PO 11/03/17 21:30 11/05/17 23:48 (Zofran Inj) 4 mg Q6H PRN IV PUSH 11/03/17 21:30 11/05/17 18:10 Miscellaneous Information 1 Q361D XX 11/03/17 21:30 11/03/17 21:30 (Chlorhexidine 2% Cloth) 3 pack Taper DAILY@04 TOP 11/04/17 04:00 10/31/18 03:59 (Chlorhexidine 2% Cloth) 3 pack UNSCH PRN TOP 11/03/17 21:30 (Sandie-Colace) 1 tab BID PO 11/04/17 09:00 11/06/17 21:12 (Milk Of Magnesia Liq) 30 ml Q12H PRN PO 11/03/17 21:30 (Morphine Inj) 2 mg Q3H PRN IM 11/03/17 21:30 (Symbicort 160-4.5 Mcg Inh) 2 puff Q12HR INH 11/04/17 09:00 11/07/17 09:35 (Albuterol Neb) 2.5 mg Q2HR NEB PRN NEB 11/04/17 07:00 (NovoLIN R SUPPLEMENTAL SCALE) 1 ACHS SQ 11/04/17 08:00 (Protonix) 40 mg DAILY PO 11/04/17 09:00 11/07/17 09:38 (Prinivil) 10 mg DAILY PO 11/04/17 21:30 11/07/17 09:38 (Plavix) 75 mg DAILY PO 11/05/17 09:00 11/07/17 09:37 (Coreg) 12.5 mg Q12HR PO 11/05/17 21:00 11/07/17 09:36 (Lipitor) 10 mg HS PO 11/05/17 21:00 11/06/17 21:13 (SoluMEDROL INJ) 40 mg Q12HR IV PUSH 11/05/17 21:00 11/07/17 23:00 11/07/17 09:36 (Spiriva Inh) 18 mcg DAILY INH 11/06/17 09:00 11/07/17 09:33 (Aspirin Chew) 81 mg DAILY PO 11/06/17 09:00 11/07/17 09:36 (Levaquin) 500 mg DAILY PO 11/07/17 09:00 11/07/17 09:37 (Duoneb Neb) 1 ampule Q4HR NEB INH 11/07/17 12:00 11/07/17 11:13 (Deltasone) 10 mg DAILY PO 11/08/17 09:00 (Ativan) 0.5 mg Q12H PRN PO 11/07/17 09:45 11/07/17 11:14 Vital Signs / I&O Vital Signs Date Time Temp Pulse Resp B/P (MAP) Pulse Ox O2 Delivery O2 Flow Rate FiO2 11/07/17 15:58 98.4 63 18 160/78 (105) 93 11/07/17 15:34 95 21 11/07/17 14:00 92 11/07/17 13:00 70 11/07/17 12:00 60 11/07/17 11:10 98.4 82 18 95 11/07/17 11:00 69 11/07/17 10:00 86 11/07/17 09:17 94 Room Air 11/07/17 09:17 98.0 94 18 162/90 (114) 94 11/07/17 09:00 84 11/07/17 08:00 62 11/07/17 07:34 93 Nasal Cannula 2.00 11/07/17 07:00 60 11/07/17 06:00 60 11/07/17 05:00 60 11/07/17 04:00 67 11/07/17 03:30 98.8 69 16 95 11/07/17 03:00 75 11/07/17 02:00 71 11/07/17 01:00 76 11/07/17 00:00 72 11/06/17 23:55 95 Nasal Cannula 2.00 11/06/17 23:00 98.3 71 16 146/82 (103) 95 11/06/17 23:00 70 11/06/17 22:00 88 11/06/17 21:00 74 11/06/17 20:00 93 Room Air 11/06/17 20:00 98.6 85 20 158/68 (98) 93 11/06/17 20:00 68 11/06/17 19:00 74 11/06/17 17:00 72 I/O 11/06/17 11/06/17 11/06/17 11/07/17 11/07/17 11/07/17 06:59 14:59 22:59 06:59 14:59 22:59 Intake Total 480 ml 360 ml 360 ml Output Total 300 ml 500 ml 625 ml Balance 180 ml -140 ml -265 ml Intake Oral 480 ml 360 ml 360 ml Output Urine Total 300 ml 500 ml 625 ml # Voids 2 # Bowel Movements 0 1 Physical Exam GENERAL: In NAD. SKIN: Warm and dry. HEAD: Normocephalic. EYES: No scleral icterus. No injection or drainage. NECK: Supple, trachea midline. No JVD or lymphadenopathy. CARDIOVASCULAR: Regular rate and rhythm without murmurs, gallops, or rubs. RESPIRATORY: Breath sounds equal bilaterally. No accessory muscle use. GASTROINTESTINAL: Abdomen soft, non-tender, nondistended. MUSCULOSKELETAL: No cyanosis, trace edema. Laboratory Laboratory Tests Test 11/07/17 05:06 White Blood Count 9.2 TH/MM3 Red Blood Count 4.44 MIL/MM3 Hemoglobin 13.5 GM/DL Hematocrit 39.9 % Mean Corpuscular Volume 89.8 FL Mean Corpuscular Hemoglobin 30.3 PG Mean Corpuscular Hemoglobin Concent 33.8 % Red Cell Distribution Width 13.9 % Platelet Count 253 TH/MM3 Mean Platelet Volume 8.5 FL Blood Urea Nitrogen 28 MG/DL Creatinine 0.69 MG/DL Random Glucose 117 MG/DL Calcium Level 7.9 MG/DL Sodium Level 140 MEQ/L Potassium Level 3.7 MEQ/L Chloride Level 104 MEQ/L Carbon Dioxide Level 27.0 MEQ/L Anion Gap 9 MEQ/L Estimat Glomerular Filtration Rate 81 ML/MIN Assessment and Plan Problem List: (1) Acute respiratory failure with hypoxia ICD Codes: J96.01 - Acute respiratory failure with hypoxia Status: Acute (2) COPD exacerbation ICD Codes: J44.1 - Chronic obstructive pulmonary disease with (acute) exacerbation Status: Acute (3) Elevated troponin ICD Codes: R74.8 - Abnormal levels of other serum enzymes (4) LBBB (left bundle branch block) ICD Codes: I44.7 - Left bundle-branch block, unspecified (5) HTN (hypertension) ICD Codes: I10 - Essential (primary) hypertension Assessment and Plan Progressive improvement. Echo c/w ischemic CM, continue and titrate beta armando and lisinopril. Continue Plavix and baby ASA. Still hypertensive, continue and titrate antihypertensive tx. Continue tx for COPD. Increase activity, PT. Anticipate DC home tomorrow. Will schedule f/u as outpatient. Dhiraj Hunter MD Nov 07, 2017 16:12
[2017-11-07] MEDS: ATORVASTATIN 10 MG TAB PO SCH (21:09)
[2017-11-08] VITALS (13 sets, daily range): BP systolic 158; BP diastolic 76; PULSE 59–78; RESP 18–20; TEMP 97.7–98; O2SAT 92–97
[2017-11-08] MEDS: RESP: ALBUTEROL 2.5 MG/IPRATROPIUM 0.5 MG NEB (SCH) INH ×4 (03:26→11:33)
[2017-11-08] MEDS: CHLORHEXIDINE GLUCONATE 2 % 1 PACK (2 CLOTHS) TOP SCH (03:55)
[2017-11-08 06:36] LABS: HEMATOCRIT 40.5 % (35.0-46.0); HEMOGLOBIN 13.8 GM/DL (11.6-15.3); MEAN CELL VOLUME 89.4 FL (80.0-100.0); MEAN CORPUSCULAR HEMOGLOBIN 30.5 PG (27.0-34.0); MEAN CORPUSCULAR HGB CONC 34.1 % (32.0-36.0); MEAN PLATELET VOLUME 8.4 FL (7.0-11.0); PLATELET COUNT 291 TH/MM3 (150-450); RED BLOOD COUNT 4.53 MIL/MM3 (4.00-5.30); RED CELL DISTRIBUTION WIDTH 13.7 % (11.6-17.2); WHITE BLOOD COUNT 8.1 TH/MM3 (4.0-11.0)
[2017-11-08 07:24] LABS: BICARBONATE 28.5 MEQ/L (21.0-32.0); CALCIUM 8.3 MG/DL (8.5-10.1); CREATININE 0.62 MG/DL (0.50-1.00)
[2017-11-08] MEDS: INSULIN NovoLIN REGULAR SUPPLEMENTAL SCALE SQ SCH ×2 (08:00→12:00)
[2017-11-08] MEDS: TIOTROPIUM BROMIDE 18 MCG INH INH SCH (09:00)
[2017-11-08] MEDS: DOCUSATE SODIUM 50 MG/SENNA 8.6 MG TAB PO SCH (09:00)
[2017-11-08] MEDS ORDERED: LISINOPRIL 20 MG TAB PO SCH (09:00)
[2017-11-08] MEDS: BUDESONIDE-FORMOTEROL 160/4.5 MCG INHALER INH SCH (09:00)
[2017-11-08] MEDS ORDERED: predniSONE 10 MG TAB PO SCH (09:00)
[2017-11-08] MEDS: CLOPIDOGREL 75 MG TAB PO SCH (09:00)
[2017-11-08] MEDS: ASPIRIN 81 MG CHEW TAB PO SCH (09:06)
[2017-11-08] MEDS: LEVOFLOXACIN 500 MG TAB PO SCH (09:06)
[2017-11-08] MEDS: CARVEDILOL 12.5 MG TAB PO SCH (09:06)
[2017-11-08] MEDS: SODIUM CHLORIDE 0.9% FLUSH 10 ML FLUSH IVF PRN (09:06)
[2017-11-08] MEDS: PANTOPRAZOLE SOD 40 MG DELAYED RELEASE TAB PO SCH (09:06)
--- NOTE | 2017-11-08 11:29 | HHI.PR ---
Subjective Remarks Follow-up respiratory failure/COPD exacerbation/left bundle branch block 11/05/17-patient seen and examined, she reported improvement or shortness of breath and denies any chest pain. She was transferred to CICU 11/06/17-patient seen and examined, no chest pain or shortness of breath.BP better after arm cuff changed to appropriate size. Patient has been refusing resp therapy 11/07/17-patient seen and examined, states she's having improvement of shortness of breath. Quite anxious about discharge as she would like to go home on 11/08/17 when her daughter comes to burr picker. blood pressure improved 11/08/17-patient seen and examined, reports improvement of shortness of breath and denies any chest pain. Ready to go home Objective Vitals Vital Signs Date Time Temp Pulse Resp B/P (MAP) Pulse Ox O2 Delivery O2 Flow Rate FiO2 11/08/17 10:31 78 11/08/17 09:43 78 11/08/17 09:43 98.0 78 20 97 158/76 (103) 11/08/17 08:03 78 11/08/17 07:57 78 11/08/17 07:57 Room Air 11/08/17 06:00 63 11/08/17 05:00 66 11/08/17 04:00 65 11/08/17 04:00 97.7 67 18 94 11/08/17 03:00 65 11/08/17 02:00 64 11/08/17 01:00 70 11/08/17 00:00 98.0 59 18 92 11/08/17 00:00 65 11/07/17 23:00 64 11/07/17 22:00 76 11/07/17 21:00 76 11/07/17 20:00 Room Air 11/07/17 20:00 77 11/07/17 20:00 98.3 69 18 156/80 (105) 94 156/80 (105) 11/07/17 18:12 81 11/07/17 17:31 69 11/07/17 16:19 67 11/07/17 15:58 98.4 63 18 160/78 (105) 93 11/07/17 15:34 95 21 11/07/17 15:00 64 11/07/17 14:00 92 11/07/17 13:00 70 11/07/17 12:00 60 I/O 11/07/17 11/07/17 11/07/17 11/08/17 11/08/17 11/08/17 07:00 15:00 23:00 07:00 15:00 23:00 Intake Total 360 ml 930 ml 240 ml Output Total 625 ml 250 ml Balance -265 ml 680 ml 240 ml Intake Oral 360 ml 930 ml 240 ml Output Urine Total 625 ml 250 ml # Voids 3 2 # Bowel Movements 1 1 Result Diagram: 11/08/17 0445 11/08/17 0445 Imaging Last Impressions Chest X-Ray 11/06/17 0600 Signed Impressions: Service Date/Time: Monday, November 06, 2017 03:26 - CONCLUSION: No acute cardiopulmonary disease. Jo-Ann Abdi MD Objective Remarks GENERAL: NAD SKIN: Warm and dry. HEAD: Normocephalic. EYES: No scleral icterus. No injection or drainage. NECK: Supple, trachea midline. No JVD or lymphadenopathy. CARDIOVASCULAR: Regular rate and rhythm without murmurs, gallops, or rubs. RESPIRATORY: Breath sounds equal bilaterally. No accessory muscle use. GASTROINTESTINAL: Abdomen soft, non-tender, nondistended. MUSCULOSKELETAL: No cyanosis, or edema. BACK: Nontender without obvious deformity. No CVA tenderness. Procedures none A/P Problem List: (1) Respiratory failure ICD Code: J96.90 - Respiratory failure, unspecified, unspecified whether with hypoxia or hypercapnia Status: Resolved (2) Left bundle branch block ICD Code: I44.7 - Left bundle-branch block, unspecified (3) COPD exacerbation ICD Code: J44.1 - Chronic obstructive pulmonary disease with (acute) exacerbation Status: Acute Assessment and Plan 81-year-old female with Elevated troponin Incompletely left bundle branch block Lactic acidosis-resolved Elevated BNP Currently on aspirin 325 mg by mouth daily,clopidogrel 75 mg daily Antihypertensive medication were increased to carvedilol 25 mg by mouth twice a day and lisinopril 20 mg daily. Continue statin Patient input from cardiology . 2-D echo with EF 45% s/p Heparin Acute respiratory insufficiency - multifactorial COPD exacerbation-resolved Nasal cannula to maintain saturations greater than or equal to 92% Incentive spirometry while awake Currently on budesonide/formoterol 160/4.5 and Spiriva s/p Solu-Medrol 40 mg every 12 and continue DuoNeb. Continue by mouth prednisone . Continue Levaquin Hyperglycemia Low TSH Sliding-scale insulin with aspart insulin with Accu-Cheks before meals/at bedtime to maintain euglycemia/low regimen hemoglobin A1c 5.5 TSH 0.16. PT consult to treat and eval Prophylaxis - GI - pantoprazole - DVT - SCD Discharge Planning discharge in Ryne Whitney MD Nov 08, 2017 11:29
[2017-11-08] MEDS ORDERED: SPIRCAP INH (11:37)
[2017-11-08] MEDS ORDERED: LEVA500T33 PO (11:37)
[2017-11-08] MEDS ORDERED: ASPI81 PO (11:37)
[2017-11-08] MEDS ORDERED: CARV12.5 PO (11:37)
[2017-11-08] MEDS ORDERED: LISI-515 PO (11:37)
[2017-11-08] MEDS ORDERED: PLAV75TA29 PO (11:37)
[2017-11-08] MEDS ORDERED: LIPI10TA PO (11:37)
[2017-11-08] MEDS ORDERED: PRED10 PO (11:37)
--- NOTE | 2017-11-08 11:43 | HHI.DS ---
Discharge Summary Admission Date Nov 03, 2017 at 21:14 Discharge Date: Nov 08, 2017 Admitting Diagnosis hypertensive emergeny, congestive heart failure (1) Respiratory failure ICD Code: J96.90 - Respiratory failure, unspecified, unspecified whether with hypoxia or hypercapnia Status: Resolved (2) Left bundle branch block ICD Code: I44.7 - Left bundle-branch block, unspecified (3) COPD exacerbation ICD Code: J44.1 - Chronic obstructive pulmonary disease with (acute) exacerbation Status: Acute Procedures none Brief History - From Admission This is an 81-year-old female with a history of COPD who presented yesterday the emergency department with the chief complaint of worsening shortness of breath over the last few days. She denies fever, chills. She endorses chronic sputum production but no change in the quality or consistency or amount of sputum production. Yesterday she denied any chest pain or dyspnea on exertion, however today she endorses a chest tightness that she describes as "a tightness underneath her breasts ". She states that this chest tightness last 5 or 10 minutes and then was away on its own. No exacerbating or alleviating factors. In the emergency department yesterday she was given a steroid Dosepak and sent home with frequent nebs. She represents tachycardic and hypertensive in the emergency department. Her troponins were 0.05 yesterday and they've risen to 0.28 today with an associated rise in creatinine kinase. She denies having any history of coronary artery disease. She denies nausea, vomiting, abdominal pain. She denies any radiating of this chest pain. In the emergency department she was labored in her breathing and hypoxic and was placed initially on nonrebreather and then BiPAP. Chest x-ray shows early pulmonary vascular congestion and possible pulmonary edema. The emergency room she was given 40 mg of IV Lasix with good diuresis and was weaned down to nasal cannula oxygen. When I evaluated the patient she was no longer labored but can speak in complete sentences. EKG both yesterday and today demonstrate a widened QRS what appears to be in incomplete left bundle-branch block. No overt evidence of STEMI criteria. Other laboratory evidence is positive for leukocytosis to 16.4 with an 81% neutrophil predominance, slightly elevated AST/LT, BNP of 399, and lactate of 3.5. CBC/BMP: 11/08/17 0445 11/08/17 0445 Significant Findings Laboratory Tests Test 11/06/17 08:33 11/07/17 05:06 11/08/17 04:45 Blood Urea Nitrogen 30 MG/DL (7-18) 28 MG/DL (7-18) 30 MG/DL (7-18) Total Protein 6.1 GM/DL (6.4-8.2) Albumin 2.8 GM/DL (3.4-5.0) Calcium Level 8.4 MG/DL (8.5-10.1) 7.9 MG/DL (8.5-10.1) 8.3 MG/DL (8.5-10.1) Estimat Glomerular Filtration Rate 79 ML/MIN (>89) 81 ML/MIN (>89) Free Triiodothyronine (T3) pg/dL 1.47 PG/ML (2.18-3.98) Random Glucose 117 MG/DL (74-106) 121 MG/DL (74-106) Imaging Last Impressions Chest X-Ray 11/06/17 0600 Signed Impressions: Service Date/Time: Monday, November 06, 2017 03:26 - CONCLUSION: No acute cardiopulmonary disease. Jo-Ann Abdi MD PE at Discharge GENERAL: NAD SKIN: Warm and dry. HEAD: Normocephalic. EYES: No scleral icterus. No injection or drainage. NECK: Supple, trachea midline. No JVD or lymphadenopathy. CARDIOVASCULAR: Regular rate and rhythm without murmurs, gallops, or rubs. RESPIRATORY: Breath sounds equal bilaterally. No accessory muscle use. GASTROINTESTINAL: Abdomen soft, non-tender, nondistended. MUSCULOSKELETAL: No cyanosis, or edema. BACK: Nontender without obvious deformity. No CVA tenderness. Hospital Course While in the hospital patient was treated for Elevated troponin Incompletely left bundle branch block Lactic acidosis-resolved Elevated BNP Cardiology was consulted Treated with aspirin 325 mg by mouth daily,clopidogrel 75 mg daily She was started on carvedilol 25 mg by mouth twice a day and lisinopril 20 mg daily as well as statin 2-D echo with EF 45% Acute respiratory insufficiency - multifactorial COPD exacerbation-resolving Nasal cannula to maintain saturations greater than or equal to 92% Incentive spirometry while awake She was treated with budesonide/formoterol 160/4.5 and Spiriva s/p Solu-Medrol 40 mg every 12 and switched to Prednisone and treated with DuoNeb as well as Levaquin Hyperglycemia Low TSH Sliding-scale insulin with aspart insulin with Accu-Cheks before meals/at bedtime to maintain euglycemia/low regimen hemoglobin A1c 5.5 TSH 0.16. Prophylaxis - GI - pantoprazole - DVT - SCD Pt Condition on Discharge: Good Discharge Disposition: Discharge Home Discharge Time: > 30 minutes Discharge Instructions DIET: Follow Instructions for: Heart Healthy Diet Activities you can perform: Regular-No Restrictions Follow up Referrals: Cardiology PCP Follow-up - 1 Week New Medications: Aspirin (Tgt Aspirin) 81 Mg Chw 81 MG PO DAILY for Prevent Blood Clot, #30 EA Atorvastatin (Lipitor) 10 Mg Tab 10 MG PO HS for Cholesterol Management, #30 TAB 3 Refills Carvedilol (Coreg) 12.5 Mg Tab 25 MG PO Q12HR for Blood Pressure Management, #60 TAB 3 Refills Clopidogrel (Plavix) 75 Mg Tab 75 MG PO DAILY for Prevent Blood Clot, #30 TAB 3 Refills Levofloxacin (Levaquin) 500 Mg Tablet 500 MG PO DAILY for Infection, #5 MG Lisinopril (Lisinopril) 20 Mg Tab 20 MG PO DAILY for Blood Pressure Management, #30 TAB 3 Refills Prednisone (Prednisone) 10 Mg Tab 10 MG PO DAILY for Immunosuppression, #7 TAB Tiotropium Inh (Spiriva Handihaler) 18 Mcg Cap 18 MCG INH DAILY for Breathing Treatment, #30 CAP 3 Refills 1 capsule = 18 mcg Continued Medications: Albuterol 8.5 GM Inh (Proair Hfa 8.5 GM Inh) 90 Mcg/Act Aer 2 PUFF INH Q4-6H PRN for SHORTNESS OF BREATH, #1 INHALER 11 Refills 108 mcg/actuation Budesonide-Formoterol Inh (Symbicort Inh) 160-4.5 Mcg/Act Aero 2 PUFF INH Q12HR, #1 INHALER 11 Refills Discontinued Medications: Amoxicillin (Amoxicillin) 500 Mg Cap 500 MG PO TID for Infection for 10 Days, CAP 0 Refills Ciprofloxacin (Cipro) 500 Mg Tab 500 MG PO BID for Infection, #14 TAB 0 Refills Methylprednisolone Dosepak (Medrol Dosepak) 4 Mg Dspk 4 MG PO DIRECTED, #1 DSPK 0 Refills Per Pharmacist direction Metoclopramide (Reglan) 5 Mg Tab 5 MG PO Q8HR for Nausea, #15 TAB 0 Refills Ryne Turcios MD Nov 08, 2017 11:43
--- NOTE | 2017-11-08 13:20 | PD.CARD.PN ---
Subjective Subjective Remarks No CP or SOB, feels much better Objective Medications Current Medications Medications (Trade) Dose Ordered Sig/Karl Route Start Time Stop Time Status Last Admin (NS Flush) 2 ml UNSCH PRN IVF 11/03/17 18:45 11/08/17 09:06 (Lopressor Inj) 5 mg Q5M PRN IV PUSH 11/03/17 21:30 11/04/17 18:20 (D50w (Vial) Inj) 25 ml UNSCH PRN IV PUSH 11/03/17 21:30 (Tylenol) 650 mg Q6H PRN PO 11/03/17 21:30 11/05/17 23:48 (Zofran Inj) 4 mg Q6H PRN IV PUSH 11/03/17 21:30 11/05/17 18:10 Miscellaneous Information 1 Q361D XX 11/03/17 21:30 11/03/17 21:30 (Chlorhexidine 2% Cloth) 3 pack Taper DAILY@04 TOP 11/04/17 04:00 10/31/18 03:59 (Chlorhexidine 2% Cloth) 3 pack UNSCH PRN TOP 11/03/17 21:30 (Sandie-Colace) 1 tab BID PO 11/04/17 09:00 11/06/17 21:12 (Milk Of Magnesia Liq) 30 ml Q12H PRN PO 11/03/17 21:30 (Morphine Inj) 2 mg Q3H PRN IM 11/03/17 21:30 (Symbicort 160-4.5 Mcg Inh) 2 puff Q12HR INH 11/04/17 09:00 11/08/17 09:00 (Albuterol Neb) 2.5 mg Q2HR NEB PRN NEB 11/04/17 07:00 (NovoLIN R SUPPLEMENTAL SCALE) 1 ACHS SQ 11/04/17 08:00 (Protonix) 40 mg DAILY PO 11/04/17 09:00 11/08/17 09:06 (Plavix) 75 mg DAILY PO 11/05/17 09:00 11/08/17 09:00 (Lipitor) 10 mg HS PO 11/05/17 21:00 11/07/17 21:09 (Spiriva Inh) 18 mcg DAILY INH 11/06/17 09:00 11/08/17 09:00 (Aspirin Chew) 81 mg DAILY PO 11/06/17 09:00 11/08/17 09:06 (Levaquin) 500 mg DAILY PO 11/07/17 09:00 11/08/17 09:06 (Duoneb Neb) 1 ampule Q4HR NEB INH 11/07/17 12:00 11/08/17 08:13 (Deltasone) 10 mg DAILY PO 11/08/17 09:00 11/08/17 09:06 (Ativan) 0.5 mg Q12H PRN PO 11/07/17 09:45 11/07/17 21:09 (Coreg) 25 mg Q12HR PO 11/07/17 21:00 11/08/17 09:06 (Prinivil) 20 mg DAILY PO 11/08/17 09:00 11/08/17 09:06 Vital Signs / I&O Vital Signs Date Time Temp Pulse Resp B/P (MAP) Pulse Ox O2 Delivery O2 Flow Rate FiO2 11/08/17 12:21 98.0 76 18 11/08/17 12:19 76 11/08/17 10:31 78 11/08/17 09:43 78 11/08/17 09:43 98.0 78 20 97 158/76 (103) 11/08/17 08:03 78 11/08/17 07:57 78 11/08/17 07:57 Room Air 11/08/17 06:00 63 11/08/17 05:00 66 11/08/17 04:00 65 11/08/17 04:00 97.7 67 18 94 11/08/17 03:00 65 11/08/17 02:00 64 11/08/17 01:00 70 11/08/17 00:00 98.0 59 18 92 11/08/17 00:00 65 11/07/17 23:00 64 11/07/17 22:00 76 11/07/17 21:00 76 11/07/17 20:00 Room Air 11/07/17 20:00 77 11/07/17 20:00 98.3 69 18 156/80 (105) 94 156/80 (105) 11/07/17 18:12 81 11/07/17 17:31 69 11/07/17 16:19 67 11/07/17 15:58 98.4 63 18 160/78 (105) 93 12/28/17 15:34 95 21 11/07/17 15:00 64 11/07/17 14:00 92 I/O 11/07/17 11/07/17 11/07/17 11/08/17 11/08/17 11/08/17 07:00 15:00 23:00 07:00 15:00 23:00 Intake Total 360 ml 930 ml 240 ml Output Total 625 ml 250 ml Balance -265 ml 680 ml 240 ml Intake Oral 360 ml 930 ml 240 ml Output Urine Total 625 ml 250 ml # Voids 3 2 # Bowel Movements 1 1 Physical Exam GENERAL: In NAD. SKIN: Warm and dry. HEAD: Normocephalic. EYES: No scleral icterus. No injection or drainage. NECK: Supple, trachea midline. No JVD or lymphadenopathy. CARDIOVASCULAR: Regular rate and rhythm without murmurs, gallops, or rubs. RESPIRATORY: Breath sounds equal bilaterally. No accessory muscle use. GASTROINTESTINAL: Abdomen soft, non-tender, nondistended. MUSCULOSKELETAL: No cyanosis, trace edema. Laboratory Laboratory Tests Test 11/08/17 04:45 White Blood Count 8.1 TH/MM3 Red Blood Count 4.53 MIL/MM3 Hemoglobin 13.8 GM/DL Hematocrit 40.5 % Mean Corpuscular Volume 89.4 FL Mean Corpuscular Hemoglobin 30.5 PG Mean Corpuscular Hemoglobin Concent 34.1 % Red Cell Distribution Width 13.7 % Platelet Count 291 TH/MM3 Mean Platelet Volume 8.4 FL Blood Urea Nitrogen 30 MG/DL Creatinine 0.62 MG/DL Random Glucose 121 MG/DL Calcium Level 8.3 MG/DL Sodium Level 141 MEQ/L Potassium Level 3.9 MEQ/L Chloride Level 104 MEQ/L Carbon Dioxide Level 28.5 MEQ/L Anion Gap 9 MEQ/L Estimat Glomerular Filtration Rate 92 ML/MIN Assessment and Plan Problem List: (1) Acute respiratory failure with hypoxia ICD Codes: J96.01 - Acute respiratory failure with hypoxia Status: Acute (2) COPD exacerbation ICD Codes: J44.1 - Chronic obstructive pulmonary disease with (acute) exacerbation Status: Acute (3) Elevated troponin ICD Codes: R74.8 - Abnormal levels of other serum enzymes (4) LBBB (left bundle branch block) ICD Codes: I44.7 - Left bundle-branch block, unspecified (5) HTN (hypertension) ICD Codes: I10 - Essential (primary) hypertension Assessment and Plan Overall improved. Echo c/w ischemic CM, continue and titrate beta armando and lisinopril. Continue Plavix and baby ASA. Continue and titrate antihypertensive tx. Continue tx for COPD. Increase activity, PT. DC home. Will schedule f/u as outpatient. Dhiraj Hunter MD Nov 08, 2017 13:20
== END 2017-11-08 13:48 | disposition home or self-care (01) | DRG 190 ==
LOC: NEPC 18:28 → NEDA 21:14 → N03B 21:59 → HCIS 11-05 10:50
PROVIDERS: ADMIT Hospitalist; ATTEND Hospitalist
PROC: 5A09357 Assistance with Respiratory Ventilation, Less than 24 Consecutive Hours, Continuous Positive Airway Pressure (ICD-10-PCS; principal; 2017-11-03)
DX: J44.1 Chronic obstructive pulmonary disease with (acute) exacerbation (principal); J96.01 Acute respiratory failure with hypoxia; E87.2 Acidosis; R00.0 Tachycardia, unspecified; I44.7 Left bundle-branch block, unspecified; K21.9 Gastro-esophageal reflux disease without esophagitis; G47.00 Insomnia, unspecified; E11.65 Type 2 diabetes mellitus with hyperglycemia; F17.210 Nicotine dependence, cigarettes, uncomplicated; I50.9 Heart failure, unspecified; I11.0 Hypertensive heart disease with heart failure; I25.5 Ischemic cardiomyopathy; E88.09 Other disorders of plasma-protein metabolism, not elsewhere classified; R74.0 Nonspecific elevation of levels of transaminase and lactic acid dehydrogenase [LDH]
CPT/HCPCS: 36600; 71010; 80048; 80053; 80061; 80076; 81001; 82550; 82552; 82805; 82948; 83036; 83605; 83735; 83880; 84100; 84439; 84443; 84481; 84484; 85025; 85027; 85610; 85730; 87040; 87804; 93005; 93306; 94002; 94150; 94640; 94664; 94667; 94668; 96365; 96375; J0153; J0360; J1644; J1940; J1956; J2405; J2920; J2930; J7512